=== PATIENT | female | born 1990 | race Caucasian/White ===

== ENCOUNTER → 2020-04-22 08:23 | Outpatient (CLI) | payer BC, SELFPAY ==
--- NOTE | 2020-04-22 08:29 | DI.US.S_ITS ---
PROCEDURE: US OB <= 14 WEEKS FETUS INDICATIONS: INITIAL US, DATING OUTSIDE/PRIOR DATING DATA: Last menstrual period (LMP): 02/21/20. LMP-based estimated date of delivery (DANIELLE): 11/27/20 . First dating scan (date and location): 04/22/20 . Estimated date of delivery (DANIELLE) from first dating scan: 11/25/20 . TECHNIQUE: Real-time scanning was performed of the fetus and maternal pelvic organs, with image documentation. Endovaginal scanning was also performed to better visualize the fetus and maternal ovaries. COMPARISON: None. FINDINGS: Embryo: [place]-rump length of 2.3 cm correlates with a gestational age estimate of 9 weeks 0 days, +/-5 days. A small subchorionic hemorrhage measuring 1.0 x 1.8 x 2.3 cm is present. Measurement variability in dating: +/- 4 weeks by LMP, +/- 7 days by mean sac diameter (use before 6 weeks gestation if crown-rump length not able to be measured), +/- 5 days by crown-rump length (up to 8 weeks 6 days gestation), +/- 7 days by crown-rump length (up to 13 weeks 6 days gestation). Maternal organs: Ovaries normal considering gestational status . Limited images through the kidneys demonstrate no hydronephrosis. REFERENCE THRESHOLD NUMBERS DELETE FROM FINAL REPORT ?-hCG levels and endovaginal scanning: * Should see gestational sac if >6289-4666 IU/L. * Single hCG level, regardless of value cannot distinguish b/w ectopic and IUP. * If hCG level <3000, do not treat for ectopic, to avoid harming possible viable IUP. * If hCG level >3000, most likely non-viable IUP if a sac is not visualized. Get followup hCG AND pelvic US before treating for ectopic . * Any recommended followup: favor short-term US rather than serial hCG levels. Small percentage of ectopics may have hCG changes that mimic IUP or sAb. Gestational age and endovaginal scannin-6-7 rule of thumb * Should see gestational sac by 5 weeks EGA * Should see yolk sac by 6 weeks EGA * Should see embryo by 7 weeks EGA [place] [employer] consensus statement: recommendations for reporting: * Definite ectopic : extra-uterine GS with YS, possibly embryo. * Probably ectopic : extra-uterine sac-like structure or adnexal mass. * of unknown location: no visible IUP or ectopic. o If single hCG level is 3000 or more: viable intrauterine gestation is unlikely but cannot be definitively excluded. o If pt is hemodynamically stable, a single hCG level should not be used to distinguish ectopic from intrauterine , or determining MTX Rx. o hCG and 7-10 day US followup (preferred) until definitive diagnosis. o Most ectopic pregnancies have hCG levels <3000 and often <1000, but is variable and does not predict rupture. * Probable intra-uterine : intra-uterine sac-like structure with no yolk sac or embryo, normal adnexa. * Definite intra-uterine : intra-uterine GS with yolk sac, possible embryo. SRU consensus statement Jun 2012: Findings suspicious but not diagnostic for early failure: * CRL <7 mm and no heart motion. * MGSD 16-24 mm and no embryo seen. * No embryo 7-13 days after US that showed GS without yolk sac. * No embryo 7-10 days after US that showed GS with yolk sac. * Absence of embryo 6 weeks or more after LMP. * Empty amniotic sac adjacent to yolk sac. * Large yolk sac of 7 mm or more. * Small sac size: MGSD minus CRL is < 5 mm. * Sustained bradycardia <80 bpm. Findings diagnostic for early failure: * CRL 7 mm or more and no heart motion. * MGSD 25 mm or more and no embryo seen. * No embryo seen 14 days or more after US showed a GS without yolk sac. * No embryo seen 11 days or more after US showed a GS with yolk sac. Nuchal translucency: abnormal at >3 mm between 10-14 weeks EGA IMPRESSION: Single living intrauterine gestation, small adjacent subchorionic hemorrhage incidentally noted. Delivery date is projected to be centered on 11/25/20. Follow-up anatomic survey at approximately 20 weeks gestation is recommended. Dictated by: Kj Flores M.D. on 04/22/2020 at 9:56 Approved by: Kj Flores M.D. on 04/22/2020 at 9:59
[2020-04-22 09:35] LABS: Add Manual Diff / Slide Review NO; Basophils Absolute Auto 0 /uL (0-100); Basophils Percent Auto 0.4 % (0-2); Eosinophils Absolute Auto 0 /uL (0-450); Eosinophils Percent Auto 0.4 % (2-4); Hematocrit 39.5 % (36-46); Hemoglobin 13.6 g/dL (12.0-16.0); Lymphocytes Absolute Auto 1500 /uL (1100-4500); Lymphocytes Percent Auto 15.1 % (25-40); Mean Corpuscular HGB Conc 34.5 % (30-36); Mean Corpuscular Hemoglobin 29.5 PG (26-34); Mean Corpuscular Volume 85.6 fL (80-100); Monocytes Absolute Auto 600 /uL (0-900); Monocytes Percent Auto 5.5 % (3-14); Neutrophils Absolute Auto 7800 /uL (1500-7000); Neutrophils Percent Auto 78.6 % (50-75); Platelet Count 232 X10^3/uL (150-400); Red Blood Cell Count 4.62 X10^6/uL (4.0-5.2); Red Cell Distribution Width 12.5 % (11.6-14.8)
[2020-04-22 09:37] LABS: Appearance Urine UA CLEAR; Bilirubin Urine UA NEGATIVE (NEGATIVE); Color Urine UA YELLOW; Glucose Urine UA NEGATIVE (Negative); Ketones Urine UA NEGATIVE (NEGATIVE); Leukocyte Esterase Urine UA NEGATIVE (NEGATIVE); Nitrite Urine UA NEGATIVE (Negative); Occult Blood Urine UA NEGATIVE (Negative); Protein Urine UA NEGATIVE (Negative); Specific Gravity Urine UA <=1.005 (1.000-1.035); Urobilinogen Urine UA 0.2 E.U./dL (0.2)
[2020-04-22 12:57] LABS: Hepatitis B Surface Antigen NEGATIVE s/c (NEGATIVE); Rubella Antibody IgG 21.2 IU/mL (>15)
[2020-04-22 13:12] LABS: HIV 1 & 2 Ab/Ag 4th Gen Combo NEGATIVE (NEGATIVE); Hep C Virus Ab w/Reflex Quant NEGATIVE s/c (NEGATIVE)
[2020-04-23 04:12] LABS: RPR Screen Non Reactive (Non Reactive)
[2020-04-23 07:09] LABS: Varicella IgG Antibody 230 index (Immune >165)
== END ==
PROVIDERS: PCP Family Medicine; Referring Provider Family Medicine; Visit Provider Family Medicine
DX: Z34.91 Encounter for supervision of normal pregnancy, unspecified, first trimester (principal); Z3A.09 9 weeks gestation of pregnancy
CPT/HCPCS: 36415; 76801; 76817; 80055; 81003; 86787; 86803; 86850; 86900; 86901; 87086; 87389

== ENCOUNTER → 2020-07-11 15:37 | Outpatient (CLI) | payer BC, SELFPAY ==
--- NOTE | 2020-07-11 15:37 | DI.US.S_ITS ---
PROCEDURE: US OB >= 14 WEEKS FETUS INDICATIONS: anatomy screening OUTSIDE/PRIOR DATING DATA: Last menstrual period (LMP): 02/21/20 . LMP-based estimated date of delivery (DANIELLE): 11/28/19 . First dating scan (date and location): 04/22/20 . Estimated date of delivery (DANIELLE) from first dating scan: 11/25/20 . TECHNIQUE: Real-time scanning was performed of the fetus, with image documentation and biometric measurements. Endovaginal scanning: Not needed COMPARISON: None. FINDINGS: General: A single living intrauterine gestation is present. Presentation: Vertex. Placenta: Placental position is anterior , without previa. Amniotic fluid index: 12.4 cm, normal range is 5-24 cm. heart rate: 153 beats per minute. Maternal cervical canal: 4.8 cm long. Normal lower limit is 2.5 cm. biometrics: Biparietal diameter: 4.4 cm, 19 weeks 3 days Head circumference: 17.4 cm, 19 weeks 6 days Abdominal circumference: 15.7 cm, 20 weeks 6 days Femur length: 3.8 cm, 22 weeks 1 day Estimated gestational age from initial scan: 20 weeks 3 days Composite gestational age from present scan: 20 weeks 4 days Estimated weight and percentile: 407 g, 85th percentile Measurement variability for biometric dating: +/- 7 days from 14 weeks to 15 weeks 6 days gestation, +/- 10 days from 16 weeks to 21 weeks 6 days gestation, +/- 2 weeks from 22 weeks to 27 weeks 6 days gestation, +/- 3 weeks for 28 weeks gestation or later. weight reference: 4500 g or EFW >90/95% is considered macrosomia or large for gestational age. EFW <10% is small for gestational age. EFW 5% or less is considered intra-uterine growth restriction. Anatomic survey: Neuro: Ventricles are non-dilated at less than 10 mm. Cisterna magna is normal at 3-11 mm. Cerebellum is normal in size and morphology. Nuchal skin fold: Normal at less than 6 mm between 14-21 weeks gestational age. Face: Nose and lips, facial profile are normal. Spine: No evidence for spina bifida. Heart: 4-chambered heart is present, with normal ventricular outflow tracts. Diaphragm: Diaphragm is intact. Stomach: Left-sided stomach is present. Kidneys: No hydronephrosis. Normal is less than 5 mm in 2nd trimester, less than 7 mm in 3rd trimester. Cord: 3-vessel cord has orthotopic insertion. Bladder: Normal in size. Extremities: All 4 extremities identified. IMPRESSION: Appropriate interval growth, no anomaly seen. The delivery date is projected to be centered on 11/25/20. Dictated by: Kj Flores M.D. on 07/12/2020 at 10:48 Approved by: Kj Flores M.D. on 07/12/2020 at 11:05
== END ==
PROVIDERS: PCP Family Medicine; Referring Provider Family Medicine; Visit Provider Family Medicine
DX: Z36.89 Encounter for other specified antenatal screening (principal); Z3A.20 20 weeks gestation of pregnancy
CPT/HCPCS: 76811

== ENCOUNTER → 2020-09-12 07:16 | Outpatient (CLI) | payer BC, SELFPAY ==
[2020-09-12 09:25] LABS: Hematocrit 34.4 % (36-46); Hemoglobin 11.8 g/dL (12.0-16.0)
[2020-09-12 10:06] LABS: GTT (PREG) 1 Hour PP 50gm Dose 130 mg/dL (76-139)
== END ==
PROVIDERS: PCP Family Medicine; Referring Provider Family Medicine; Visit Provider Family Medicine
DX: Z34.90 Encounter for supervision of normal pregnancy, unspecified, unspecified trimester (principal); Z3A.26 26 weeks gestation of pregnancy
CPT/HCPCS: 36415; 82950; 85014; 85018

== ENCOUNTER → 2020-10-13 16:05 | Outpatient (CLI) | payer BC, SELFPAY ==
--- NOTE | 2020-10-13 16:06 | DI.US.S_ITS ---
PROCEDURE: US OB LIMITED INDICATIONS: h/o macrosomia, check growth OUTSIDE/PRIOR DATING DATA: Last menstrual period (LMP): 02/21/20. LMP-based estimated date of delivery (DANIELLE): 11/27/20 . First dating scan (date and location): 04/22/20 . Estimated date of delivery (DANIELLE) from first dating scan: 11/25/20 . TECHNIQUE: Real-time scanning was performed of the fetus, with image documentation and biometric measurements. Endovaginal scanning: Not needed COMPARISON: None. FINDINGS: General: A single living intrauterine gestation is present. Presentation: Vertex. Placenta: Placental position is anterior Amniotic fluid index: 14.2 cm, normal range is 5-24 cm. heart rate: 136 beats per minute. Maternal cervical canal: 3.9 cm long. Normal lower limit is 2.5 cm. biometrics: Biparietal diameter: 8.3 cm, 33 weeks 2 days Head circumference: 30.7 cm, 34 weeks 2 days Abdominal circumference: 30.7 cm, 34 weeks 5 days Femur length: 6.8 cm, 35 weeks 1 day Estimated gestational age from initial scan: 33 weeks 6 days. Composite gestational age from present scan: 34 weeks 2 days Estimated weight and percentile: 2476 g, 67th percentile Measurement variability for biometric dating: +/- 7 days from 14 weeks to 15 weeks 6 days gestation, +/- 10 days from 16 weeks to 21 weeks 6 days gestation, +/- 2 weeks from 22 weeks to 27 weeks 6 days gestation, +/- 3 weeks for 28 weeks gestation or later. weight reference: 4500 g or EFW >90/95% is considered macrosomia or large for gestational age. EFW <10% is small for gestational age. EFW 5% or less is considered intra-uterine growth restriction. Other: Not applicable. IMPRESSION: Appropriate interval growth, no sign of macrosomia. Dictated by: Kj Flores M.D. on 10/14/2020 at 9:33 Approved by: Kj Flores M.D. on 10/14/2020 at 9:37
== END ==
PROVIDERS: PCP Family Medicine; Referring Provider Family Medicine; Visit Provider Family Medicine
DX: Z36.2 Encounter for other antenatal screening follow-up (principal); Z3A.34 34 weeks gestation of pregnancy
CPT/HCPCS: 76815

== ENCOUNTER → 2020-11-04 08:50 | Outpatient (CLI) | payer BC, SELFPAY ==
[2020-11-05 13:16] LABS: Strep Grp B PCR POS for Grp B Strep
== END ==
PROVIDERS: PCP Family Medicine; Visit Provider Family Medicine
DX: Z34.93 Encounter for supervision of normal pregnancy, unspecified, third trimester (principal); Z3A.36 36 weeks gestation of pregnancy
CPT/HCPCS: 87186; 87653

== ENCOUNTER 2020-11-24 19:29 | Inpatient (IN) | payer BC, SELFPAY ==
[2020-11-24 19:43] VITALS: BP 115/72
[2020-11-24 20:12] LABS: Add Manual Diff / Slide Review NO; Basophils Absolute Auto 100 /uL (0-100); Basophils Percent Auto 0.6 % (0-2); Eosinophils Absolute Auto 100 /uL (0-450); Eosinophils Percent Auto 0.7 % (2-4); Hematocrit 36.1 % (36-46); Hemoglobin 11.8 g/dL (12.0-16.0); Lymphocytes Absolute Auto 2600 /uL (1100-4500); Lymphocytes Percent Auto 20.5 % (25-40); Mean Corpuscular HGB Conc 32.6 % (30-36); Mean Corpuscular Hemoglobin 27.1 PG (26-34); Monocytes Absolute Auto 900 /uL (0-900); Monocytes Percent Auto 7.3 % (3-14); Neutrophils Absolute Auto 8800 /uL (1500-7000); Neutrophils Percent Auto 70.9 % (50-75); Platelet Count 259 X10^3/uL (150-400); Red Blood Cell Count 4.35 X10^6/uL (4.0-5.2); Red Cell Distribution Width 13.4 % (11.6-14.8); White Blood Cell Count 12.5 X10^3/uL (4.5-11.0)
[2020-11-24] MEDS: DINOPROSTONE VAG (CERVIDIL) 10 MG VAG (20:30)
[2020-11-24] MEDS: CEFAZOLIN 2 GM/100 ML FROZ.PIGGY IV (21:40)
[2020-11-24] MEDS: LACTATED RINGERS 1,000 ML 100 ML IV (21:40)
[2020-11-24 21:49] LABS: COVID19 - ADMIT (NP swab/PCR) Negative (Negative)
[2020-11-24] MEDS: ZOLPIDEM 5 MG TABLET PO (22:56)
[2020-11-25] MEDS: OXYTOCIN PREMIX 30 UNIT/500 ML PLAST..BAG IV (05:03)
[2020-11-25] MEDS: CEFAZOLIN 1 GM/50 ML FROZ.PIGGY IV ×3 (05:28→14:16)
--- NOTE | 2020-11-25 06:46 | PM.OBHP.1 ---
OB HPI Date/Time Date of admission: 11/25/20 Date Patient Seen: 11/25/20 Time Patient Seen: 07:10 History of Present Condition Chief complaint: observation of labor : 4 Para: 1 Estimated Date of Delivery: 11/27/20 Estimated Gestational Age (weeks): 39w5d Narrative: Bethany Galindo is a 30 year old at 30 weeks and 5 days here for induction due to history of forceps delivery with macrosomia. has been uncomplicated. Estimated weight was sixty-seventh percentile 34 weeks. Patient came in last night for Cervidil. Less than 1 hour after placement of Cervidil she began mary painfully every minute so Cervidil was removed. Overnight she continued to contract but mild enough to sleep through. Denies leaking or bleeding and reports good movement. Indications Indication for induction OB: other (Prior forceps delivery and macrosomia) History of Present care: good care, initiated at week # (9), number of visits (11) and pounds weight gain (41) Dating criteria: LMP confirmed by 1st trimester US Ultrasounds: normal 1st trimester US and normal mid trimester US Obstetrical complications: none Medical complications: none Preadmission Labs Blood type: A (+) positive -: Antibody screen: negative, GBS status: positive, HBsAG: negative, HIV: negative and RPR/VDLR: negative -: Rubella: immune and Varicella: immune HCT: 36.1 HCAB: negative Urine: Negative 1 hr GTT: 130 Prior (ies) History: 09/19/16 7 weeks spontaneous , [place] 08/29/17 postdates induction at 41 weeks forcep assisted vaginal delivery, 9 lbs 2 oz male, 18 hr labor, epidural, [place], breast fed 13 months 01/25/20 6 weeks spontaneous , [place] Evaluation Evaluation Baseline heart rate: 130 Variability: Moderate (11-25) monitor accelerations: Present monitor decelerations: Absent Contraction Frequency (minutes): 4 Status: Category l Cervical dilation (cm): 3 Cervical effacement (%): 75 station: -2 Laboratory results: Laboratory Tests 11/24/20 11/24/20 11/24/20 19:55 20:00 20:00 WBC 12.5 H RBC 4.35 Hgb 11.8 L Hct 36.1 MCV 83.0 MCH 27.1 MCHC 32.6 RDW 13.4 Plt Count 259 Neut % (Auto) 70.9 Lymph % (Auto) 20.5 L [place] % (Auto) 7.3 Eos % (Auto) 0.7 L Baso % (Auto) 0.6 Neut # (Auto) 8800 H Lymph # (Auto) 2600 [place] # (Auto) 900 Eos # (Auto) 100 Baso # (Auto) 100 SARS-CoV-2 (PCR) Negative Blood Type A Positive Antibody Screen Negative PFSH Medical History Allergies Astigmatism Chicken pox (~1995) Heavy menstrual period Kidney stones (~2016) Migraines (~2007) (spontaneous vaginal delivery) Surgical History Anesthesia [place] teeth removed (~2007) Family History Mother Gestational diabetes Endometriosis Father Hyperlipidemia Grandfather History of heart disease Colon cancer Hyperlipidemia Hypertension Grandmother Liver cancer Osteoporosis Grandfather Diabetes mellitus History of heart disease Hyperlipidemia Grandmother Colon cancer Breast cancer Macular degeneration Family/Other Diabetes mellitus Family/Other Lymphoma Family/Other Breast cancer Sister Benign tumor of pituitary gland Social History marital status: number of children: 1 household members: family lives independently: Yes pets and animals: Yes (X 2 dogs) education level: college (BA K-12 [employer] and [employer] Cert) occupational status: unemployed ([id number]) current occupational exposures/hazards: No 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 [employer] nicole/amish: [employer] special nicole needs: No Smoking Status: Never smoker second hand exposure: No alcohol intake: former (pre- : rare use) substance use type: does not use Meds Home Medications and Allergies Home Medications Medication Instructions Recorded Confirmed Type prenat.vits,drea,ejp-[id number] 1 tab PO DAILY 04/20/20 11/24/20 History Allergies Allergy/AdvReac Type Severity Reaction Status Date / Time amoxicillin Allergy Severe Hives Verified 04/25/20 14:05 Review of Systems Review of Systems ROS: Yes All systems reviewed with the patient and are negative except as otherwise documented Exam Vital Signs (past 8 hours): Temperature 36.2? blood pressure 114/64 heart rate 94 Const General: healthy appearing and comfortable [facility] Head: normal to inspection Ears: hearing grossly normal bilaterally Nose: external nose normal Face and sinus: normal facial exam Mouth: oral mucosae normal Eyes General: appearance normal, both eyes and all related structures Neck Neck: normal visual inspection Resp Effort & Inspection: normal respiratory effort Auscultation: clear to auscultation bilaterally Cardio Rate: regular rate Rhythm: regular rhythm Heart Sounds: no murmurs GI Other: Gravid External Female Exam: normal external appearance Manual OB Exam: dilated 3, effaced 75% and station -2 Presentation: vertex Estimated Weight (lbs): 8 Back/Spine/Pelvis Back: normal to inspection Skin General: no rashes or lesions noted Extrem General: normal to inspection and no pedal edema Objective Labs Result Diagrams: 11/24/20 20:00 Labs: Laboratory Results - last 24 hr 11/24/20 11/24/20 11/24/20 19:55 20:00 20:00 WBC 12.5 H RBC 4.35 Hgb 11.8 L Hct 36.1 MCV 83.0 MCH 27.1 MCHC 32.6 RDW 13.4 Plt Count 259 Neut % (Auto) 70.9 Lymph % (Auto) 20.5 L [place] % (Auto) 7.3 Eos % (Auto) 0.7 L Baso % (Auto) 0.6 Neut # (Auto) 8800 H Lymph # (Auto) 2600 [place] # (Auto) 900 Eos # (Auto) 100 Baso # (Auto) 100 SARS-CoV-2 (PCR) Negative Blood Type A Positive Antibody Screen Negative Assessment and Plan Assessment and Plan Assessment and Plan narrative: 30-year-old at 39 weeks and 5 days gestation here for induction due to history of forceps delivery and macrosomia. She received Cervidil last night however it was removed after 1 hour due to tachysystole. This morning Kaur score is 7. Plan Pitocin per protocol GBS prophylaxis with cefazolin due to mild penicillin allergy Epidural upon request COVID negative Anticipate vaginal delivery
[2020-11-25] MEDS: ACETAMINOPHEN 325 MG TABLET 650 MG PO (09:17)
[2020-11-25] MEDS: LACTATED RINGERS 1,000 ML 100 ML IV ×2 (10:03→14:14)
--- NOTE | 2020-11-25 12:38 | PM.OBPNLAB ---
Date/Time Date Patient Seen: 11/25/20 Time Patient Seen: 12:25 Pain Control Pain control: tolerating well Pelvic Exam Dilation (cm): 3 Effacement (%): 75 station: -2 Amniotic membrane status: Ruptured (Small amount of clear fluid) Contractions Pitocin rate (mU/min): 18 Contraction frequency (min): 4 Contraction intensity: Moderate Status status: Category l Heart Rate Baseline: 150 Monitor Accelerations: Present Monitor Decelerations: Absent Monitor Variability: Moderate Assessment and Plan Assessment: induction ongoing Plan: continuous present management Comments: Patient has been on pitocin since 5 AM with little change. AROM with small amount of clear fluid. Continue pitocin. Epidural when desired.
--- NOTE | 2020-11-25 16:55 | PM.OBPNLAB ---
Date/Time Date Patient Seen: 11/25/20 Time Patient Seen: 16:45 Pain Control Pain control: tolerating well and epidural Comments: Doing well after second epidural. States she cannot feel anything. Pelvic Exam Dilation (cm): 7 Effacement (%): 100 station: -2 Amniotic membrane status: Ruptured (clear) Contractions Pitocin rate (mU/min): 15 Contraction frequency (min): 3 Contraction intensity: Moderate Status status: Category l Heart Rate Baseline: 130 Monitor Accelerations: Present Monitor Decelerations: Early Monitor Variability: Moderate Assessment and Plan Assessment: active labor Plan: continuous present management
--- NOTE | 2020-11-25 19:03 | P.PCNOB_ITS ---
Labor & Delivery Delivery date: 11/25/20 Cervical ripening method: per Cervidil protocol Induction method: per pitocin protocol Delivery augmentation: rupture of membranes Delivery monitor: external FHT Route of delivery: L&D Laceration Description: Perineal - 2nd Degree Delivery repair: vicryl Estimated blood loss (mL): 400 Anesthesia Type: Epidural Narrative: Patient is a 30-year-old at 39+5 weeks who gave on 11/25/20 at 18:30. DANIELLE: 11/27/20 Hospital problems: 39 weeks of GBS positive Epidural analgesia STAGE I: Labor Patient presented the night of 11/24/20 for Cervidil. Cervidil was removed after 1 hour due to uterine tachysystole however patient continued to contract overnight. The morning of 11/25/20 she received Pitocin per protocol. Artificial rupture membranes occurred at 12:37 p.m. with clear fluid. She went on to receive an epidural which had to be done a second time. She was complete at 5:41 p.m.. heart tones were category 1 and 2 throughout stage I due to occasional variable decelerations. Stage I duration 20 hours. STAGE II: Delivery Patient was complete however labored down for approximately 30 minutes due to lack of the urge to push. She went on to deliver a vigorous female at 18 30. Infant was vertex and ML. Infant was immediately placed on mother's abdomen. Cord was clamped and cut after 1 minutes delay. Apgars were 9 and 9. No resuscitation of the required. Stage II duration 49 minutes. [place] weight 3983 g STAGE III: Placenta/Cord Gentle traction was applied to the cord however cord was beginning to avulse. The decision was main to manually extract the placenta which had begun to separate from the uterus and was partially in the vagina. Placenta delivered intact with a three-vessel cord. The umbilical cord was barely attached to the placenta on inspection. Stage III duration 10 minutes. Will give an additional dose of cefazolin due to manual extraction of placenta. A linear second-degree perineal laceration through her previous episiotomy scar was repaired with 4-0 Vicryl with good hemostasis. Uterus was firm below umbilicus after repair. EBL: 400 mL. Needle and sponge counts were correct. The vagina was inspected and no items were left in situ. Patient was doing well with [place], her and at bedside. Baby 1: gender: Female Presentation: vertex Position: Left Occiput Anterior Placenta delivery description: Manual Removal Cord Vessel Description: 3 Vessels Plan for aftercare: Routine care
[2020-11-26] MEDS: DERMOPLAST SPRAY 20% 60 ML 1 SPRAY TOP (01:06)
[2020-11-26] MEDS: IBUPROFEN 600 MG TABLET PO ×3 (03:38→15:37)
[2020-11-26] MEDS: ACETAMINOPHEN 325 MG TABLET 650 MG PO ×3 (03:38→15:37)
[2020-11-26 05:50] LABS: Add Manual Diff / Slide Review NO; Basophils Absolute Auto 100 /uL (0-100); Basophils Percent Auto 0.7 % (0-2); Eosinophils Absolute Auto 0 /uL (0-450); Eosinophils Percent Auto 0.1 % (2-4); Hematocrit 33.7 % (36-46); Hemoglobin 11.1 g/dL (12.0-16.0); Lymphocytes Absolute Auto 2500 /uL (1100-4500); Lymphocytes Percent Auto 13.9 % (25-40); Mean Corpuscular HGB Conc 32.9 % (30-36); Mean Corpuscular Hemoglobin 27.3 PG (26-34); Mean Corpuscular Volume 83.1 fL (80-100); Monocytes Absolute Auto 1000 /uL (0-900); Monocytes Percent Auto 5.6 % (3-14); Neutrophils Absolute Auto 14400 /uL (1500-7000); Neutrophils Percent Auto 79.7 % (50-75); Platelet Count 244 X10^3/uL (150-400); Red Blood Cell Count 4.05 X10^6/uL (4.0-5.2); Red Cell Distribution Width 13.5 % (11.6-14.8)
--- NOTE | 2020-11-26 09:30 | PM.OBDS.1 ---
Discharge Providers Provider Date of admission: 11/24/20 19:29 Discharge Date: 11/26/20 Primary care physician: Nubia Arroyo DO Consults: 11/26/20 19:04 Consult to [employer] Routine Comment: Discharge provider: Nubia Arroyo DO Summary Hospital Course Date Patient Seen: 11/26/20 Time Patient Seen: 09:00 Hospital Course: Patient is a 30-year-old [id number] after uncomplicated spontaneous vaginal delivery. She delivered a vigorous female on 11/25/20 at 6:30 p.m. She was induced due to history of forceps delivery and macrosomia. She received Cervidil for cervical ripening followed by Pitocin and artificial rupture membranes. She went on to receive an epidural which had to be redone. Cefazolin was given for GBS prophylaxis due to penicillin allergy and she received 3 doses prior to delivery. After delivery of infant, the cord was starting to avulse from the placenta so the placenta was manually extracted. She received an additional dose of cefazolin after delivery. course was uncomplicated. She was ambulating, voiding, eating and passing flatus. Vaginal bleeding was moderate. Pain controlled with ibuprofen and Tylenol. Breast-feeding going well, no issues in the . Patient will discharge home later this evening. Advised her to call for fevers, severe pain or bleeding through more than a pad an hour. We will see her in clinic in 6 weeks or sooner if needed. Peripartum Data Delivery Method: Natural Vaginal Laceration Description: Perineal - 2nd Degree complications: none 1: Gender: Female Disposition of : home Discharge Diagnosis (1) Spontaneous vaginal delivery: Status: Acute (2) 39 weeks gestation of : Status: Acute Time Spent with Patient Time attestation: Total time spent providing and/or coordinating discharge services: Objective Labs Result Diagrams: 11/26/20 05:37 Labs: Laboratory Results - last 24 hr 11/26/20 05:37 WBC 18.0 H RBC 4.05 Hgb 11.1 L Hct 33.7 L MCV 83.1 MCH 27.3 MCHC 32.9 RDW 13.5 Plt Count 244 Neut % (Auto) 79.7 H Lymph % (Auto) 13.9 L [place] % (Auto) 5.6 Eos % (Auto) 0.1 L Baso % (Auto) 0.7 Neut # (Auto) 15183 H Lymph # (Auto) 2500 [place] # (Auto) 1000 H Eos # (Auto) 0 Baso # (Auto) 100 Exam Vital Signs (past 8 hours): Temperature 98.4? blood pressure 115/74 heart rate 68 respirations 16 Narrative Exam Narrative: General: Awake and alert, no acute distress. HEENT: NCAT, EOMI, moist oral mucosa CV: Regular rate and rhythm, no murmurs, rubs or gallops Lungs: CTAB, no wheezes, rales, or rhonchi Abdomen: Soft, nontender; bowel tones active; uterus firm 1 cm below umbilicus Extremities: Warm, no edema Discharge Plan Discharge Plan Patient Disposition: Home Provider Discharge Comment: Call for bleeding through more than a pad an hour, fevers or severe pain. Discharge orders & Medications Prescriptions: New docusate sodium [DOK] 100 mg Capsule 100 mg PO DAILY Qty: 30 RF: 0 ibuprofen 600 mg Tablet 600 mg PO Q6HR PRN (Reason: Pain, Mild (1-3)) Qty: 30 RF: 0 Continued prenat.vits,drea,[id number] Tablet 1 tab PO DAILY RF: 0 Follow up/Referrals: Nubia Arroyo DO [Primary Care Provider] - 6 Weeks Visit Report/Discharge Packet Visit Report Forms: Patient Portal/API, Stroke Signs & Symptoms Discharge Data Primary Care Provider: Nubia Arroyo
[2020-11-26] MEDS: PRENATAL VIT,CALC/IRON/FOLIC 1 TABLET 1 TAB PO (09:35)
[2020-11-26] MEDS: DOCUSATE 100 MG CAPSULE PO (09:35)
[2020-11-26 15:23] VITALS: BP 116/79; PULSE 78; RESP 16; TEMP 36.7
== END 2020-11-26 18:00 | disposition home or self-care (01) | DRG 807 ==
PROVIDERS: Admitting Provider Family Medicine; PCP Family Medicine; Referring Provider Family Medicine; Visit Provider Family Medicine
DX: O99.824 Streptococcus B carrier state complicating childbirth (principal); Z37.0 Single live birth; Z3A.39 39 weeks gestation of pregnancy; O70.1 Second degree perineal laceration during delivery; Z20.822 Contact with and (suspected) exposure to COVID-19
CPT/HCPCS: 01967; 36415; 59050; 59400; 85025; 86850; 86900; 86901; 87635; G0379; J0690; J2590

== ENCOUNTER → 2021-01-06 10:16 | Outpatient (CLI) | payer BC, SELFPAY ==
[2021-01-06] MEDS: COVID-19 VACC #1, MRNA(MOD) 100 MCG/0.5 ML VIAL IM (10:30)
== END ==
PROVIDERS: PCP Family Medicine; Visit Provider Internal Medicine
DX: Z23 Encounter for immunization (principal)
CPT/HCPCS: 0011A; 91301

== ENCOUNTER → 2021-02-01 10:13 | Outpatient (CLI) | payer BC, SELFPAY ==
[2021-02-01] MEDS: COVID-19 VACC #2, MRNA(MOD) 100 MCG/0.5 ML VIAL IM (10:19)
== END ==
PROVIDERS: PCP Family Medicine; Visit Provider Internal Medicine
DX: Z23 Encounter for immunization (principal)
CPT/HCPCS: 0012A; 91301

== ENCOUNTER → 2023-08-09 15:21 | Outpatient (CLI) | payer BC, SELFPAY ==
[2023-08-09 16:06] LABS: Add Manual Diff / Slide Review NO; Basophils Absolute Auto 0 /uL (0-100); Basophils Percent Auto 0.4 % (0-2); Eosinophils Absolute Auto 100 /uL (0-450); Eosinophils Percent Auto 0.5 % (2-4); Hematocrit 37.8 % (36-46); Hemoglobin 12.8 g/dL (12.0-16.0); Lymphocytes Absolute Auto 2100 /uL (1100-4500); Lymphocytes Percent Auto 21.6 % (25-40); Mean Corpuscular HGB Conc 33.8 % (30-36); Mean Corpuscular Hemoglobin 28.5 PG (26-34); Mean Corpuscular Volume 84.3 fL (80-100); Monocytes Absolute Auto 500 /uL (0-900); Monocytes Percent Auto 5.2 % (3-14); Neutrophils Absolute Auto 7100 /uL (1500-7000); Neutrophils Percent Auto 72.3 % (50-75); Platelet Count 241 X10^3/uL (150-400); Red Blood Cell Count 4.49 X10^6/uL (4.0-5.2); Red Cell Distribution Width 12.8 % (11.6-14.8); White Blood Cell Count 9.8 X10^3/uL (4.5-11.0)
[2023-08-09 16:15] LABS: Appearance Urine UA CLEAR; Bilirubin Urine UA NEGATIVE (NEGATIVE); Color Urine UA YELLOW; Glucose Urine UA NEGATIVE (Negative); Ketones Urine UA NEGATIVE (NEGATIVE); Leukocyte Esterase Urine UA NEGATIVE (NEGATIVE); Nitrite Urine UA NEGATIVE (Negative); Occult Blood Urine UA NEGATIVE (Negative); Protein Urine UA NEGATIVE (Negative); Specific Gravity Urine UA 1.025 (1.000-1.035); Urobilinogen Urine UA 0.2 E.U./dL (0.2)
[2023-08-09 16:26] LABS: pH Urine UA 6.5 (4.5-8.0)
[2023-08-10 11:03] LABS: Varicella IgG Antibody 244 index (Immune >165)
[2023-08-12 16:28] LABS: Hepatitis B Surface Antigen NEGATIVE s/c (NEGATIVE)
[2023-08-12 16:29] LABS: Rubella Antibody IgG 17.4 IU/mL (>15)
[2023-08-12 16:45] LABS: HIV 1 & 2 Ab/Ag 4th Gen Combo NEGATIVE (NEGATIVE); Hep C Virus Ab w/Reflex Quant NEGATIVE s/c (NEGATIVE)
[2023-08-13 09:27] LABS: RPR Screen Non Reactive (Non Reactive)
== END ==
PROVIDERS: PCP Family Medicine; Referring Provider Family Medicine; Visit Provider Family Medicine
DX: Z34.80 Encounter for supervision of other normal pregnancy, unspecified trimester (principal)
CPT/HCPCS: 80055; 81003; 86787; 86803; 86850; 86900; 86901; 87086; 87389

== ENCOUNTER → 2023-09-05 10:52 | Outpatient (CLI) | payer BC, SELFPAY ==
[2023-09-05 12:07] LABS: Appearance Urine UA CLEAR; Bilirubin Urine UA NEGATIVE (NEGATIVE); Color Urine UA YELLOW; Glucose Urine UA NEGATIVE (Negative); Ketones Urine UA NEGATIVE (NEGATIVE); Leukocyte Esterase Urine UA NEGATIVE (NEGATIVE); Nitrite Urine UA NEGATIVE (Negative); Occult Blood Urine UA NEGATIVE (Negative); Protein Urine UA NEGATIVE (Negative); Specific Gravity Urine UA 1.025 (1.000-1.035); Urobilinogen Urine UA 0.2 E.U./dL (0.2)
[2023-09-05 12:23] LABS: Amorphous Sediment Urine 1+; Bacteria Urine None Seen; Culture Indicated Urine Cult Not Indicated; Hyaline Casts Urine 0-1/LPF; RBC Urine None Seen (0-5/HPF); Squamous Epithelial Cell Urine 1-5 /HPF (0-5/HPF); WBC Urine None Seen (0-5/HPF)
== END ==
PROVIDERS: PCP Family Medicine; Referring Provider Family Medicine; Visit Provider Family Medicine
DX: R30.0 Dysuria (principal)
CPT/HCPCS: 81001

== ENCOUNTER → 2023-10-11 14:13 | Outpatient (CLI) | payer BC, SELFPAY ==
--- NOTE | 2023-10-11 14:14 | DI.US.S_ITS ---
PROCEDURE: US OB >= 14 WEEKS FETUS INDICATIONS: growth OUTSIDE/PRIOR DATING DATA: Last menstrual period (LMP): Unknown. LMP-based estimated date of delivery (DANIELLE): Unknown. First dating scan (date and location): 07/31/2023. Estimated date of delivery (DANIELLE) from first dating scan: 03/02/2024. The calculations are made using the ultrasound DANIELLE of 03/02/2024. TECHNIQUE: Real-time scanning was performed of the fetus, with image documentation and biometric measurements. Endovaginal scanning: Not performed COMPARISON: None available. FINDINGS: General: A single living intrauterine gestation is present. Presentation: Vertex. Placenta: Placental position is posterior, without previa. Amniotic fluid index: 10.6 cm, normal range is 5-24 cm. Single deepest vertical pocket is 3.6 cm. heart rate: 144 beats per minute. Maternal cervical canal: 47 cm long. Normal lower limit is 2.5 cm. biometrics: Biparietal diameter: 4.4 cm, 19 weeks 3 days Head circumference: 17.3 cm, 19 weeks 6 days Abdominal circumference: 15.5 cm, 20 weeks 5 days Femur length: 3.4 cm, 20 weeks 3 days Clinically estimated gestational age: 19 weeks 4 days Composite gestational age from present scan: 20 weeks 1 day Estimated weight and percentile: 356 g, 91st percentile Anatomic survey: Neuro: Ventricles are non-dilated at less than 10 mm. Cisterna magna is normal at 3-11 mm. Cerebellum is normal in size and morphology. Nuchal skin fold: Normal at less than 6 mm between 14-21 weeks gestational age. Face: Nose and lips, facial profile are normal. Spine: No evidence for spina bifida. Heart: 4-chambered heart is present, with normal ventricular outflow tracts. Diaphragm: Diaphragm is intact. Stomach: Left-sided stomach is present. Kidneys: No hydronephrosis. Normal is less than 5 mm in 2nd trimester, less than 7 mm in 3rd trimester. Cord: 3-vessel cord has orthotopic insertion. Bladder: Normal in size. Extremities: All 4 extremities identified. IMPRESSION: 1. Mishra living intrauterine at 20 weeks 1 day based on today's ultrasound. Fetus is in the 91st percentile for weight. 2. Normal placenta and amniotic fluid. 3. Normal and complete anatomic survey. We strive to produce accurate, complete, and clear reports of imaging services. To assist us in improving patient care, this report was composed using standard report templates and voice recognition software. Therefore, it may contain abnormal punctuation, insertions and/or omissions. Occasional wrong-word or sound-alike substitutions may occur. Though we review the report and make efforts to correct it, we do recommend that the report be read carefully in proper context to recognize any text inaccuracies. Dictated by: Chaka Chicas M.D. on 10/11/2023 at 17:47 Approved by: Chaka Chicas M.D. on 10/11/2023 at 17:52
== END ==
LOC: US 14:14
PROVIDERS: Family Provider Family Medicine; PCP Family Medicine; Referring Provider Family Medicine; Visit Provider Family Medicine
DX: Z34.82 Encounter for supervision of other normal pregnancy, second trimester (principal); Z3A.20 20 weeks gestation of pregnancy
CPT/HCPCS: 76811

== ENCOUNTER → 2023-10-22 11:56 | Outpatient (CLI) | payer BC, SELFPAY | PROVIDERS: Family Provider Family Medicine; PCP Family Medicine; Visit Provider Family Medicine | DX: R39.15 Urgency of urination (principal) | CPT/HCPCS: 87086 ==

== ENCOUNTER → 2023-10-24 12:38 | Outpatient (CLI) | payer BC, SELFPAY ==
--- NOTE | 2023-10-24 12:39 | DI.US.S_ITS ---
PROCEDURE: US RENAL COMPLETE INDICATIONS: HEMATURIA TECHNIQUE: Real-time scanning was performed of the kidneys and bladder, with image documentation. COMPARISON: None. FINDINGS: Kidneys: Kidneys are normal in size. Right kidney measures 11.4 cm long; left kidney measures 12.0 cm long. Right renal cortical thickness is 1.8 cm; left renal cortical thickness is 2.3 cm. Renal cortical echotexture is normal. Right kidney has a generalized increased vascularity and [id number] hydronephrosis. Inferior pole the right kidney is not well visualized due to overlying bowel gas. No shadowing calculi. Left kidney unremarkable. Bladder: Moderate amount of debris. No postvoid residual. Miscellaneous: Single live intrauterine . heart rate 157 beats per minute IMPRESSION: [id number] right hydronephrosis. Moderate echogenic debris in the bladder Approved by: Tomas Encarnacion M.D. on 10/24/2023 at 16:41
== END ==
PROVIDERS: Family Provider Family Medicine; PCP Family Medicine; Referring Provider Family Medicine; Visit Provider Family Medicine
DX: O99.891 Other specified diseases and conditions complicating pregnancy (principal); N13.30 Unspecified hydronephrosis; R31.9 Hematuria, unspecified; Z3A.00 Weeks of gestation of pregnancy not specified
CPT/HCPCS: 76770

== ENCOUNTER → 2023-12-09 09:04 | Outpatient (CLI) | payer BC, SELFPAY ==
[2023-12-09 10:41] LABS: Add Manual Diff / Slide Review NO; Basophils Absolute Auto 0 /uL (0-100); Basophils Percent Auto 0.2 % (0-2); Eosinophils Absolute Auto 0 /uL (0-450); Eosinophils Percent Auto 0.3 % (2-4); Hematocrit 35.8 % (36-46); Hemoglobin 11.8 g/dL (12.0-16.0); Lymphocytes Absolute Auto 1800 /uL (1100-4500); Lymphocytes Percent Auto 15.5 % (25-40); Mean Corpuscular Hemoglobin 27.7 PG (26-34); Mean Corpuscular Volume 84.1 fL (80-100); Monocytes Absolute Auto 500 /uL (0-900); Neutrophils Absolute Auto 9100 /uL (1500-7000); Platelet Count 254 X10^3/uL (150-400); Red Blood Cell Count 4.26 X10^6/uL (4.0-5.2); Red Cell Distribution Width 13.4 % (11.6-14.8); White Blood Cell Count 11.4 X10^3/uL (4.5-11.0)
[2023-12-09 10:53] LABS: GTT (PREG) 1 Hour PP 50gm Dose 123 mg/dL (76-139)
== END ==
PROVIDERS: Family Provider Family Medicine; PCP Family Medicine; Referring Provider Family Medicine; Visit Provider Family Medicine
DX: Z34.80 Encounter for supervision of other normal pregnancy, unspecified trimester (principal)
CPT/HCPCS: 36415; 82950; 85025; 86850

== ENCOUNTER 2023-12-20 07:30 | Outpatient (RCR) | payer BC, SELFPAY ==
--- NOTE | 2023-10-25 18:32 | PT.OIE ---
Current Diagnoses Other specified disorders of muscle (10/25/23) Past Medical History (Last Reviewed 07/31/23 @ 12:06 by Carolina Moreno MD) Allergies Chicken pox (~1995) Heavy menstrual period Kidney stones (~2016) Migraines (~2007) Spontaneous vaginal delivery Past Surgical History (Last Reviewed 07/31/23 @ 12:06 by Carolina Moreno MD) Anesthesia [place] teeth removed (~2007) Visit Care Team Role Provider Type Carolina Moreno MD Attending Provider Physician Family Provider Primary Care Provider Referring Provider Specialty: Family Practice Address: [address] [place] [address], [facility] Email: [email or web address] Physical Therapy Initial Evaluation PT-OP-A Visit Information Start: 10/24/23 16:03 Freq: Status: Active Protocol: Document 10/25/23 07:30 LRN (Rec: 10/25/23 08:16 LRN [id number]) Out-Patient Physical Therapy Visit Information Visit Information Visit Type Initial Evaluation Visit Start Time 07:30 Visit Stop Time 08:14 Visit Number 1 Evaluation Information Evaluation Date 10/25/23 Precautions Precautions G5, P2. PT-OP-B Current Condition Start: 10/24/23 16:03 Freq: Status: Active Protocol: Document 10/25/23 07:30 LRN (Rec: 10/25/23 08:16 LRN [id number]) Current Condition History of Current Condition Onset Date 11/25/20 Current Complaints Urinary leakage with sneezing and sometimes feels weak in core. History of Current Condition Pt is 22 wks (due date 03/02/24). Pt experienced urinary leakage with sneezing after the of her first child 6 yrs ago. After her 2nd child in 11/25/2020 she wanted to come to therapy for a DR, but after deciding to come to therapy, the next day she found out she was (a month ago). She is currently being referred to therapy for urinary leakage, with mostly sneezing. She works out fairly regularly and has had a stomach pooch after her first child's . Pt is currently independent with ADLs and has no complaints of back pain at this time. Prior Treatments and Tests None Developmental History Developmental History Pt is G5, P2 of vaginal births . She had epiziotomy with first , mild tearing with epiziotomy with 2nd . Her children are 6 and 2 years old, turning 3 in 3 days. She had UBP during and LBP for a couple months post- after the last , that resolved on its own. Treatment Goals Patient/Caregiver Goals Pt goals: Resolve urinary leakage or learn how to limit urinary leakage, core strengthening to mitigate her diastasis post-. HEP. 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 Pt exercises regularly. PT-OP-C Subjective Start: 10/24/23 16:03 Freq: Status: Active Protocol: Document 10/25/23 07:30 LRN (Rec: 10/25/23 08:16 LRN [id number]) Patient Questionnaires Pelvic Pain and Urgency/Frequency Patient Symptom Scale Pelvic Pain Score 6 PT-OP-I Pelvic Floor Start: 10/24/23 16:03 Freq: Status: Active Protocol: Document 10/25/23 07:30 LRN (Rec: 10/25/23 08:16 LRN [id number]) Pelvic Floor Assessment Urine Urinary Symptoms Dribbling After Urination Leakage Cause Sneeze Other Leakage Causes If bladder is full and sneezes . Note: if crosses legs no leakage. Prolapse Prolapse Comments No complaints Perineal Descent Resting Absent Bearing Present Comments Pelvic Floor Comments Bulge of PF with cough, no lift of PF with contraction in supine. External PF appears tight on L side. PT-OP-J Posture/Palpation/Skin Start: 10/24/23 16:03 Freq: Status: Active Protocol: Document 10/25/23 07:30 LRN (Rec: 10/25/23 08:16 LRN [id number]) Posture Evaluation Position Standing L-Spine Posture Increased Lordosis Pelvis Posture Anteriorly Tilted Weight Distribution Balanced Knee Posture (L) Genu Valgus,(R) Genu Valgus Foot Arch (L) High Arch,(R) High Arch Comments Posture Comments Dowagers Hump, flattened upper T/S. PT-OP-K Range of Motion Start: 10/24/23 16:03 Freq: Status: Active Protocol: Document 10/25/23 07:30 LRN (Rec: 02/16/24 08:16 LRN [id number]) Lumbar Spine Range of Motion Lumbar Spine Active Degrees Testing Position Standing Flexion 75 Rotation Left 25 Rotation Right 25 Lateral Flexion Left 22 Lateral Flexion Right 25 Comments Trunk AROM: Flexion is deg?s with deg?s hip flexion, Trunk extension is deg?s with deg?s hip extension. Hip Goniometric Range of Motion Hip Right Passive Testing Position Supine Straight Leg Raise 70 Internal Rotation 40 External Rotation 65 Left Passive Testing Position Supine Straight Leg Raise 60 Internal Rotation 40 External Rotation 70 PT-OP-M Strength Start: 10/24/23 16:03 Freq: Status: Active Protocol: Document 10/25/23 07:30 LRN (Rec: 10/25/23 08:16 LRN [id number]) Trunk Strength Trunk Manual Muscle Testing Core Stabilization Decreased rotational stability . Hip Strength Hip Manual Muscle Testing Right Extension (S1) 3 Fair Adduction 3 Fair Left Extension (S1) 3 Fair Adduction 3 Fair PT-OP-Q Treatments Start: 10/24/23 16:03 Freq: Status: Active Protocol: Document 10/25/23 07:30 LRN (Rec: 10/25/23 08:16 LRN [id number]) Self-Care/Home Management Treatment Education Patient Education Home Exercise Program Other Education Discussed results of evaluation, goals, and plan of care (POC). Pt agreeable to goals and POC. Activities Self-Care/Home Management Activities Issued & reviewed HEP: Magalis ex's and discussed exercise of Quick Flicks, Long Holds and Aggravators. PT-OP-T Assessment and Plan Start: 10/24/23 16:03 Freq: Status: Active Protocol: Document 10/25/23 07:30 LRN (Rec: 10/25/23 08:16 LRN [id number]) Physical Therapy Assessment Rehab Potential Rehabilitation Potential Good Evaluation Complexity Number of Personal Factors/Comorbidities 1-2 Impairments Impairments Posture,ROM,Strength,Transfers Goals Three Impairment Decreased core stability (at this time mainly rotation) Short Term Goal (STG) Pt will be able to perform a TA contraction with drawing in her abdomen to improve core stability and mitigate onset of post- diastasis rectus. STG Duration 4 wks-11/22/23 Soakers Supervisor Goal (LTG) Strengthen core with pt able to maintain core stability with LE movement (MMT). LTG Duration 10 wks-01/03/24 Two Impairment Stress urinary incontinence due to weak PF Short Term Goal (STG) Pt stephanie be educated in proper squatting and lifting, transfers of stand<>sit<> supine, and moving in bed using breathwork/core tightening/PF contraction strengthening. STG Duration 4 wks-11/22/23 Soakers Supervisor Goal (LTG) Resolve or decrease urinary leakage with a strong sneeze w /o having to cross her legs, and learn how to limit urinary leakage with progression of . LTG Duration 10 wks-01/03/24 One Impairment Pt lacks appropriate self care HEP. Short Term Goal (STG) Education in proper methods for transfer with coordination of breathing, PF contractions . STG Duration 4 wks-11/22/23 Soakers Supervisor Goal (LTG) Pt will be independent with a self care HEP of PF/core strengthening and hip ROM ( hamstring, IR) exercises. LTG Duration 10 wks-01/03/24 Assessment Summary Assessment Pt is a 33 yo female who presents with stress urinary incontinence due to PF, hip and core weakness. Pt is 22 weeks with her 3rd child and had reported having a diastasis rectus prior to that she was planning on attending therapy for, but then fouhd she was ; therefore progress may be slow not only due to her progressing , but due to the level of weakness of her core and PF that she had prior to becoming . The pt will benefit from skilled physical therapy to improve PF and core strength, and to improve posture, hip mobility and strength to achieve the above stated goals . Physical Therapy Plan Frequency and Duration Frequency of Treatment 1x/Week Duration of treatment (weeks) 10 Plan of Care Start Date 10/25/23 Plan of Care End Date 01/03/24 Therapeutic Interventions Therapeutic Interventions Home Exercise Program,Manual Therapy,Neuromuscular Re- education,Self-Care/Home Management,Soft Tissue Mobilization,Therapeutic Activities,Therapeutic Exercises Modalities Cold Pack/Ice Massage Next Visit Focus/Plan Next Note Type Treatment Note Next Visit Plan Next: Discuss/educate in ex workouts that will be safe an appropriate for the future. Assess hip AB mobility. EXER: Hip stretch (IR>ER, hamstrings), core (rotation, TA) & hip (ext, AD) strengthening, pelvic stab. EDUC: best practice transfers with coordination of breathing /TA/PF contraction, mvmt and exercise with core pressure mgmt, body mechanics and exercise, modality use (ICE). MANUAL: Sacral balancing if needed.
--- NOTE | 2023-10-25 18:32 | PT.OPPOC ---
Physical, Occupational & Speech Therapy At [facility] Current Diagnoses Other specified disorders of muscle (10/25/23) Visit Care Team Role Provider Type Carolina Moreno MD Attending Provider Physician Family Provider Primary Care Provider Referring Provider Specialty: Family Practice Address: [address] [place] [address], [id number] Email: [email or web address] Plan Of Care PT-OP-T Assessment and Plan Start: 10/24/23 16:03 Freq: Status: Active Protocol: Document 10/25/23 07:30 LRN (Rec: 10/25/23 08:16 LRN [id number]) Physical Therapy Assessment Rehab Potential Rehabilitation Potential Good Evaluation Complexity Number of Personal Factors/Comorbidities 1-2 Impairments Impairments Posture,ROM,Strength,Transfers Goals Three Impairment Decreased core stability (at this time mainly rotation) Short Term Goal (STG) Pt will be able to perform a TA contraction with drawing in her abdomen to improve core stability and mitigate onset of post- diastasis rectus. STG Duration 4 wks-11/22/23 Wood Floor Layer Goal (LTG) Strengthen core with pt able to maintain core stability with LE movement (MMT). LTG Duration 10 wks-01/03/24 Two Impairment Stress urinary incontinence due to weak PF Short Term Goal (STG) Pt stephanie be educated in proper squatting and lifting, transfers of stand<>sit<> supine, and moving in bed using breathwork/core tightening/PF contraction strengthening. STG Duration 4 wks-11/22/23 Wood Floor Layer Goal (LTG) Resolve or decrease urinary leakage with a strong sneeze w /o having to cross her legs, and learn how to limit urinary leakage with progression of . LTG Duration 10 wks-01/03/24 One Impairment Pt lacks appropriate self care HEP. Short Term Goal (STG) Education in proper methods for transfer with coordination of breathing, PF contractions . STG Duration 4 wks-11/22/23 Wood Floor Layer Goal (LTG) Pt will be independent with a self care HEP of PF/core strengthening and hip ROM ( hamstring, IR) exercises. LTG Duration 10 wks-01/03/24 Assessment Summary Assessment Pt is a 33 yo female who presents with stress urinary incontinence due to PF, hip and core weakness. Pt is 22 weeks with her 3rd child and had reported having a diastasis rectus prior to that she was planning on attending therapy for, but then fouhd she was ; therefore progress may be slow not only due to her progressing , but due to the level of weakness of her core and PF that she had prior to becoming . The pt will benefit from skilled physical therapy to improve PF and core strength, and to improve posture, hip mobility and strength to achieve the above stated goals . Physical Therapy Plan Frequency and Duration Frequency of Treatment 1x/Week Duration of treatment (weeks) 10 Plan of Care Start Date 10/25/23 Plan of Care End Date 01/03/24 Therapeutic Interventions Therapeutic Interventions Home Exercise Program,Manual Therapy,Neuromuscular Re- education,Self-Care/Home Management,Soft Tissue Mobilization,Therapeutic Activities,Therapeutic Exercises Modalities Cold Pack/Ice Massage Next Visit Focus/Plan Next Note Type Treatment Note Next Visit Plan Next: Discuss/educate in ex workouts that will be safe an appropriate for the future. Assess hip AB mobility. EXER: Hip stretch (IR>ER, hamstrings), core (rotation, TA) & hip (ext, AD) strengthening, pelvic stab. EDUC: best practice transfers with coordination of breathing /TA/PF contraction, mvmt and exercise with core pressure mgmt, body mechanics and exercise, modality use (ICE). MANUAL: Sacral balancing if needed. Plan of Care Dates Plan of Care Start Date 10/25/23 Plan of Care End Date 01/03/24 Electronically Signed by: Amanda Mae, PT 10/25/23 0123 If you are in agreement with this Plan of Care, please return a signed and dated copy. I have reviewed this Plan of Care and certify that the skilled therapy services above are required to meet the patient?s needs. Physician Signature Date Printed Name and Credentials Clinical Instructor Signature Printed Name and Credentials
--- NOTE | 2023-11-08 16:00 | PT.OTN ---
Current Diagnoses Other specified disorders of muscle (11/08/23) Physical Therapy Treatment Note PT-OP-A Visit Information Start: 10/24/23 16:03 Freq: Status: Active Protocol: Document 11/08/23 07:25 LRN (Rec: 11/08/23 08:19 LRN [id number]) Out-Patient Physical Therapy Visit Information Visit Information Visit Type Treatment Note Visit Start Time 07:30 Visit Stop Time 08:16 Visit Number 2 Evaluation Information Evaluation Date 10/25/23 Precautions Precautions G5, P2. PT-OP-B Current Condition Start: 10/24/23 16:03 Freq: Status: Active Protocol: Document 10/25/23 07:30 LRN (Rec: 10/25/23 08:16 LRN [id number]) Current Condition History of Current Condition Onset Date 11/25/20 Current Complaints Urinary leakage with sneezing and sometimes feels weak in core. History of Current Condition Pt is 22 wks (due date 03/02/24). Pt experienced urinary leakage with sneezing after the of her first child 6 yrs ago. After her 2nd child in 11/25/2020 she wanted to come to therapy for a DR, but after deciding to come to therapy, the next day she found out she was (a month ago). She is currently being referred to therapy for urinary leakage, with mostly sneezing. She works out fairly regularly and has had a stomach pooch after her first child's . Pt is currently independent with ADLs and has no complaints of back pain at this time. Prior Treatments and Tests None Developmental History Developmental History Pt is G5, P2 of vaginal births . She had epiziotomy with first , mild tearing with epiziotomy with 2nd . Her children are 6 and 2 years old, turning 3 in 3 days. She had UBP during and LBP for a couple months post- after the last , that resolved on its own. Treatment Goals Patient/Caregiver Goals Pt goals: Resolve urinary leakage or learn how to limit urinary leakage, core strengthening to mitigate her diastasis post-. HEP. 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 Pt exercises regularly. PT-OP-C Subjective Start: 10/24/23 16:03 Freq: Status: Active Protocol: Document 11/08/23 07:25 LRN (Rec: 11/08/23 08:19 LRN [id number]) OP-PT Subjective Patient Comments Patient Comments Same. PT-OP-I Pelvic Floor Start: 10/24/23 16:03 Freq: Status: Active Protocol: Document 10/25/23 07:30 LRN (Rec: 10/25/23 08:16 LRN [id number]) Pelvic Floor Assessment Urine Urinary Symptoms Dribbling After Urination Leakage Cause Sneeze Other Leakage Causes If bladder is full and sneezes . Note: if crosses legs no leakage. Prolapse Prolapse Comments No complaints Perineal Descent Resting Absent Bearing Present Comments Pelvic Floor Comments Bulge of PF with cough, no lift of PF with contraction in supine. External PF appears tight on L side. PT-OP-J Posture/Palpation/Skin Start: 10/24/23 16:03 Freq: Status: Active Protocol: Document 10/25/23 07:30 LRN (Rec: 10/25/23 08:16 LRN [id number]) Posture Evaluation Position Standing L-Spine Posture Increased Lordosis Pelvis Posture Anteriorly Tilted Weight Distribution Balanced Knee Posture (L) Genu Valgus,(R) Genu Valgus Foot Arch (L) High Arch,(R) High Arch Comments Posture Comments Dowagers Hump, flattened upper T/S. PT-OP-K Range of Motion Start: 10/24/23 16:03 Freq: Status: Active Protocol: Document 11/08/23 07:25 LRN (Rec: 11/08/23 08:19 LRN [id number]) Hip Goniometric Range of Motion Hip Right Passive Testing Position Supine Straight Leg Raise 70 Abduction 20 Internal Rotation 40 External Rotation 65 Left Passive Testing Position Supine Straight Leg Raise 60 Abduction 30 Internal Rotation 40 External Rotation 70 PT-OP-M Strength Start: 10/24/23 16:03 Freq: Status: Active Protocol: Document 10/25/23 07:30 LRN (Rec: 10/25/23 08:16 LRN [id number]) Trunk Strength Trunk Manual Muscle Testing Core Stabilization Decreased rotational stability . Hip Strength Hip Manual Muscle Testing Right Extension (S1) 3 Fair Adduction 3 Fair Left Extension (S1) 3 Fair Adduction 3 Fair PT-OP-Q Treatments Start: 10/24/23 16:03 Freq: Status: Active Protocol: Document 11/08/23 07:25 LRN (Rec: 11/08/23 08:19 LRN [id number]) Therapeutic Exercises Sidelying Exercises TA tightening Side bilateral Reps/Minutes 3 breath hold x 10 Comments Cuing to breath normal. Sitting Exercises LE roll in/out w/Kegel Sitting Exercise Name Kegel/LE roll in-outs Resistance Lev1 TB/Ball Reps/Minutes Hold Kegel through 3 breaths x 5-8 Comments Cuing for breath on roll outs, Exhale on roll ins. Hip AD stretch Sitting Exercise Name Sitting with one leg AB for adductor stretch Side right Reps/Minutes 3' Comments Cued different positions, pt felt stretch mainly w/ hamstrings. Other Exercises 4pt- Cat/cow Other Exercise Name Cat/Cow Reps/Minutes 3' Comments Cuing for coordinated breath movement. 4pt LB stretch Other Exercise Name Rock Backs Reps/Minutes 3x 4Pt TA tightening Other Exercise Name 4 pt-TA tightening Reps/Minutes 3 breath hold x 4-5 Long sit HS/LE neural stretch Other Exercise Name Hamstring stretch (10 SH), f/b ankle DF (10x) x 3 sets Side bilateral Reps/Minutes 5' Neuro Re-Education Treatment Coordination Activities Transfers w/breath/Kegel Reps/Duration 2x Transfers w/breath Details Transfers with exhale on exertion or abdomen compression. Reps/Duration 2x Self-Care/Home Management Treatment Education Patient Education Home Exercise Program Activities Self-Care/Home Management Activities Issued & reviewed HEP: ...... .. PT-OP-T Assessment and Plan Start: 10/24/23 16:03 Freq: Status: Active Protocol: Document 11/08/23 07:25 LRN (Rec: 11/08/23 08:19 LRN [id number]) Physical Therapy Assessment Goals Three Impairment Decreased core stability (at this time mainly rotation) Short Term Goal (STG) Pt will be able to perform a TA contraction with drawing in her abdomen to improve core stability and mitigate onset of post- diastasis rectus. 11/08/23: Pt able to perform a TA in 4pt and sidelie. STG Duration 4 wks-11/22/23 progressed (need educ in sit & sup ) Halfway Goal (LTG) Strengthen core with pt able to maintain core stability with LE movement (MMT). LTG Duration 10 wks-01/03/24 Two Impairment Stress urinary incontinence due to weak PF Short Term Goal (STG) Pt stephanie be educated in proper squatting and lifting, transfers of stand<>sit<> supine, and moving in bed using breathwork/core tightening/PF contraction strengthening. 11/08/23: I/S pt in transfers with breathwork. STG Duration 4 wks-11/22/23 progressed Halfway Goal (LTG) Resolve or decrease urinary leakage with a strong sneeze w /o having to cross her legs, and learn how to limit urinary leakage with progression of . LTG Duration 10 wks-01/03/24 One Impairment Pt lacks appropriate self care HEP. Short Term Goal (STG) Education in proper methods for transfer with coordination of breathing, PF contractions . STG Duration 4 wks-11/22/23 Packing Machine Inspector Goal (LTG) Pt will be independent with a self care HEP of PF/core strengthening and hip ROM ( hamstring, IR) exercises. 11/08/23: HEP: Stretch: HS/ LE neural stretch, cat/cow, Child's Pose supported w/Diaph Breath/PF relax; Strengthen: LE roll in/out, 4 pt TA tight . LTG Duration 10 wks-01/03/24 progressed 11/08/23 Assessment Summary Assessment 33 yo female w/stress incontinence (MACRINA), 24 wks with 3rd child, previously diagnosed w/DR. Pt able to get a belly lift with sidelie TA contraction. She has decreased hip mobility: R hip AB, ER; L SLR. Physical Therapy Plan Frequency and Duration Frequency of Treatment 1x/Week Duration of treatment (weeks) 10 Plan of Care Start Date 10/25/23 Plan of Care End Date 01/03/24 Next Visit Focus/Plan Next Note Type Treatment Note Next Visit Plan Next: Discuss/educate in ex workouts that will be safe an appropriate for the future. EXER: Hip stretch (IR & R ER, hamstrings L>R), Strengthen core (rotation, TA) & hip (ext , AD) & Pelvic stabilization. EDUC: best practice transfers with coordination of breathing /TA/PF contraction, mvmt and exercise with core pressure mgmt, body mechanics and exercise, modality use (ICE). MANUAL: Sacral balancing if needed.
--- NOTE | 2023-11-15 16:57 | PT.OTN ---
Current Diagnoses Other specified disorders of muscle (11/15/23) Physical Therapy Treatment Note PT-OP-A Visit Information Start: 10/24/23 16:03 Freq: Status: Active Protocol: Document 11/15/23 07:31 LRN (Rec: 11/15/23 08:20 LRN [id number]) Out-Patient Physical Therapy Visit Information Visit Information Visit Type Treatment Note Visit Start Time 07:31 Visit Stop Time 08:14 Visit Number 3 Evaluation Information Evaluation Date 10/25/23 Precautions Precautions G5, P2. PT-OP-B Current Condition Start: 10/24/23 16:03 Freq: Status: Active Protocol: Document 10/25/23 07:30 LRN (Rec: 10/25/23 08:16 LRN [id number]) Current Condition History of Current Condition Onset Date 11/25/20 Current Complaints Urinary leakage with sneezing and sometimes feels weak in core. History of Current Condition Pt is 22 wks (due date 03/02/24). Pt experienced urinary leakage with sneezing after the of her first child 6 yrs ago. After her 2nd child in 11/25/2020 she wanted to come to therapy for a DR, but after deciding to come to therapy, the next day she found out she was (a month ago). She is currently being referred to therapy for urinary leakage, with mostly sneezing. She works out fairly regularly and has had a stomach pooch after her first child's . Pt is currently independent with ADLs and has no complaints of back pain at this time. Prior Treatments and Tests None Developmental History Developmental History Pt is G5, P2 of vaginal births . She had epiziotomy with first , mild tearing with epiziotomy with 2nd . Her children are 6 and 2 years old, turning 3 in 3 days. She had UBP during and LBP for a couple months post- after the last , that resolved on its own. Treatment Goals Patient/Caregiver Goals Pt goals: Resolve urinary leakage or learn how to limit urinary leakage, core strengthening to mitigate her diastasis post-. HEP. 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 Pt exercises regularly. PT-OP-C Subjective Start: 10/24/23 16:03 Freq: Status: Active Protocol: Document 11/15/23 07:31 LRN (Rec: 11/15/23 08:20 LRN [id number]) OP-PT Subjective Patient Comments Patient Comments Hasn't noticed leakage with sneezing unless the bladder is really full. States with shopping w/push pulling caused abdominal pain. PT-OP-I Pelvic Floor Start: 10/24/23 16:03 Freq: Status: Active Protocol: Document 10/25/23 07:30 LRN (Rec: 10/25/23 08:16 LRN [id number]) Pelvic Floor Assessment Urine Urinary Symptoms Dribbling After Urination Leakage Cause Sneeze Other Leakage Causes If bladder is full and sneezes . Note: if crosses legs no leakage. Prolapse Prolapse Comments No complaints Perineal Descent Resting Absent Bearing Present Comments Pelvic Floor Comments Bulge of PF with cough, no lift of PF with contraction in supine. External PF appears tight on L side. PT-OP-J Posture/Palpation/Skin Start: 10/24/23 16:03 Freq: Status: Active Protocol: Document 10/25/23 07:30 LRN (Rec: 10/25/23 08:16 LRN [id number]) Posture Evaluation Position Standing L-Spine Posture Increased Lordosis Pelvis Posture Anteriorly Tilted Weight Distribution Balanced Knee Posture (L) Genu Valgus,(R) Genu Valgus Foot Arch (L) High Arch,(R) High Arch Comments Posture Comments Dowagers Hump, flattened upper T/S. PT-OP-K Range of Motion Start: 10/24/23 16:03 Freq: Status: Active Protocol: Document 11/08/23 07:25 LRN (Rec: 11/08/23 08:19 LRN [id number]) Hip Goniometric Range of Motion Hip Right Passive Testing Position Supine Straight Leg Raise 70 Abduction 20 Internal Rotation 40 External Rotation 65 Left Passive Testing Position Supine Straight Leg Raise 60 Abduction 30 Internal Rotation 40 External Rotation 70 PT-OP-M Strength Start: 10/24/23 16:03 Freq: Status: Active Protocol: Document 10/25/23 07:30 LRN (Rec: 10/25/23 08:16 LRN [id number]) Trunk Strength Trunk Manual Muscle Testing Core Stabilization Decreased rotational stability . Hip Strength Hip Manual Muscle Testing Right Extension (S1) 3 Fair Adduction 3 Fair Left Extension (S1) 3 Fair Adduction 3 Fair PT-OP-Q Treatments Start: 10/24/23 16:03 Freq: Status: Active Protocol: Document 11/15/23 07:31 LRN (Rec: 11/15/23 08:20 LRN [id number]) Therapeutic Exercises Sidelying Exercises TA/Kegel/Clamshell/Reverse Clamshell Sidelying Exercise Name TA/Kegel/Clamshell/Reverse Clamshell Side bilateral Reps/Minutes 10 SH x 5 each Sitting Exercises HIp IR stretch Sitting Exercise Name Piriformis stretch (knee to opp shdr) Side bilateral Reps/Minutes 10 SH (3 breaths) x 6 each. Comments Cuing for positioning and hold times LE roll in/out w/Kegel Sitting Exercise Name Kegel/LE roll in-outs Resistance Lev1 TB/Ball Reps/Minutes Hold Kegel through 3 breaths x 5-8 Comments Cuing for breath on roll outs, Exhale on roll in and PF every other rep. Hip AD stretch Sitting Exercise Name Sitting with one leg AB for adductor stretch Side right Reps/Minutes 3' Comments Cued different positions, pt felt stretch mainly w/ hamstrings. Standing Exercises Wall Squats Standing Exercise Name Wall Squat w/TA/Kegel Reps/Minutes 10SH x 10 Other Exercises Long sit HS/LE neural stretch Other Exercise Name Hamstring stretch (10 SH), f/b ankle DF (10x) x 3 sets Side bilateral Reps/Minutes 5' Neuro Re-Education Treatment Coordination Activities Transfers w/breath/Kegel Details Stand<>sit<>supine Reps/Duration 3x Comments Cuing for proper movement. Self-Care/Home Management Treatment Activities Self-Care/Home Management Activities Previously Issued and reviewed HEP: Sitting: LE neural/ hamstring, LE roll in/out w/ TA/PF, 4 pt TA, 4pt Cat/cow, Supported child's pose w/ Diaphragmatic Breathing/PF relaxation. Issued & reviewed HEP: Sitting R Hip ER, Ayden hip IR and hip AD stretch. And standing wall squats w/TA & PF tight. Sidelie TA w/ clamshell & reverse clamshell. PT-OP-T Assessment and Plan Start: 10/24/23 16:03 Freq: Status: Active Protocol: Document 11/15/23 07:31 LRN (Rec: 11/15/23 08:20 LRN [id number]) Physical Therapy Assessment Goals Three Impairment Decreased core stability (at this time mainly rotation) Short Term Goal (STG) Pt will be able to perform a TA contraction with drawing in her abdomen to improve core stability and mitigate onset of post- diastasis rectus. 11/08/23: Pt able to perform a TA in 4pt and sidelie. 11/15/23: Pt educ in stand<> sit<>sup coodinating w/breath/ PF contraction. STG Duration 4 wks-11/22/23 (11/15/23: MET GOAL) Longterm Goal (LTG) Strengthen core with pt able to maintain core stability with LE movement (MMT). LTG Duration 10 wks-01/03/24 Two Impairment Stress urinary incontinence due to weak PF Short Term Goal (STG) Pt stephanie be educated in proper squatting and lifting, transfers of stand<>sit<> supine, and moving in bed using breathwork/core tightening/PF contraction strengthening. 11/08/23: I/S pt in transfers with breathwork. STG Duration 4 wks-11/22/23 progressed (need ed w/squat/lift/ ex prog) Longterm Goal (LTG) Resolve or decrease urinary leakage with a strong sneeze w /o having to cross her legs, and learn how to limit urinary leakage with progression of . 11/15/23: No urinary leakage with sneeze unless bladder is full. LTG Duration 10 wks-01/03/24 progressed 11/15/23 One Impairment Pt lacks appropriate self care HEP. Short Term Goal (STG) Education in proper methods for transfer with coordination of breathing, PF contractions . 11/15/23: Pt educated in transfers coordinating breath and PF contraction. STG Duration 4 wks-11/22/23 (11/15/23: MET GOAL) Respiratory Care Assistant Goal (LTG) Pt will be independent with a self care HEP of PF/core strengthening and hip ROM ( hamstring, IR) exercises. 11/08/23: HEP: Stretch: HS/ LE neural stretch, cat/cow, Child's Pose supported w/Diaph Breath/PF relax; Strengthen: LE roll in/out, 4 pt TA tight . 11/15/23: HEP: Sitting R Hip ER, Ayden hip IR and hip AD stretch. And standing wall squats w/TA & PF tight. Sidelie TA w/clamshell & reverse clamshell. LTG Duration 10 wks-01/03/24 progressed 11/15/23 Assessment Summary Assessment 33 yo female w/stress incontinence (MACRINA), with 3rd child, previously diagnosed w/ Good tolerance to TA/Kegel ex's. Lessening of MACRINA, able to sneeze mos of time w/o leakage . Physical Therapy Plan Frequency and Duration Frequency of Treatment 1x/Week Duration of treatment (weeks) 10 Plan of Care Start Date 10/25/23 Plan of Care End Date 01/03/24 Next Visit Focus/Plan Next Note Type Treatment Note Next Visit Plan Next: Discuss/educate in positions of comforts & ex workouts that will be safe an appropriate for the future. EXER: Strengthen core ( rotation, TA) & hip (ext, AD) & Pelvic stabilization. EDUC: mvmt and exercise with core pressure mgmt, body mechanics and exercise, modality use (ICE). MANUAL: Sacral balancing if needed.
--- NOTE | 2023-11-15 16:58 | PT.OTN ---
Current Diagnoses Other specified disorders of muscle (11/15/23) Physical Therapy Treatment Note PT-OP-A Visit Information Start: 10/24/23 16:03 Freq: Status: Active Protocol: Document 11/15/23 07:31 LRN (Rec: 11/15/23 08:20 LRN [id number]) Out-Patient Physical Therapy Visit Information Visit Information Visit Type Treatment Note Visit Start Time 07:31 Visit Stop Time 08:14 Visit Number 3 Evaluation Information Evaluation Date 10/25/23 Precautions Precautions G5, P2. PT-OP-B Current Condition Start: 10/24/23 16:03 Freq: Status: Active Protocol: Document 10/25/23 07:30 LRN (Rec: 10/25/23 08:16 LRN [id number]) Current Condition History of Current Condition Onset Date 11/25/20 Current Complaints Urinary leakage with sneezing and sometimes feels weak in core. History of Current Condition Pt is 22 wks (due date 03/02/24). Pt experienced urinary leakage with sneezing after the of her first child 6 yrs ago. After her 2nd child in 11/25/2020 she wanted to come to therapy for a DR, but after deciding to come to therapy, the next day she found out she was (a month ago). She is currently being referred to therapy for urinary leakage, with mostly sneezing. She works out fairly regularly and has had a stomach pooch after her first child's . Pt is currently independent with ADLs and has no complaints of back pain at this time. Prior Treatments and Tests None Developmental History Developmental History Pt is G5, P2 of vaginal births . She had epiziotomy with first , mild tearing with epiziotomy with 2nd . Her children are 6 and 2 years old, turning 3 in 3 days. She had UBP during and LBP for a couple months post- after the last , that resolved on its own. Treatment Goals Patient/Caregiver Goals Pt goals: Resolve urinary leakage or learn how to limit urinary leakage, core strengthening to mitigate her diastasis post-. HEP. 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 Pt exercises regularly. PT-OP-C Subjective Start: 10/24/23 16:03 Freq: Status: Active Protocol: Document 11/15/23 07:31 LRN (Rec: 11/15/23 08:20 LRN [id number]) OP-PT Subjective Patient Comments Patient Comments Hasn't noticed leakage with sneezing unless the bladder is really full. States with shopping w/push pulling caused abdominal pain. PT-OP-I Pelvic Floor Start: 10/24/23 16:03 Freq: Status: Active Protocol: Document 10/25/23 07:30 LRN (Rec: 10/25/23 08:16 LRN [id number]) Pelvic Floor Assessment Urine Urinary Symptoms Dribbling After Urination Leakage Cause Sneeze Other Leakage Causes If bladder is full and sneezes . Note: if crosses legs no leakage. Prolapse Prolapse Comments No complaints Perineal Descent Resting Absent Bearing Present Comments Pelvic Floor Comments Bulge of PF with cough, no lift of PF with contraction in supine. External PF appears tight on L side. PT-OP-J Posture/Palpation/Skin Start: 10/24/23 16:03 Freq: Status: Active Protocol: Document 10/25/23 07:30 LRN (Rec: 10/25/23 08:16 LRN [id number]) Posture Evaluation Position Standing L-Spine Posture Increased Lordosis Pelvis Posture Anteriorly Tilted Weight Distribution Balanced Knee Posture (L) Genu Valgus,(R) Genu Valgus Foot Arch (L) High Arch,(R) High Arch Comments Posture Comments Dowagers Hump, flattened upper T/S. PT-OP-K Range of Motion Start: 10/24/23 16:03 Freq: Status: Active Protocol: Document 11/08/23 07:25 LRN (Rec: 11/08/23 08:19 LRN [id number]) Hip Goniometric Range of Motion Hip Right Passive Testing Position Supine Straight Leg Raise 70 Abduction 20 Internal Rotation 40 External Rotation 65 Left Passive Testing Position Supine Straight Leg Raise 60 Abduction 30 Internal Rotation 40 External Rotation 70 PT-OP-M Strength Start: 10/24/23 16:03 Freq: Status: Active Protocol: Document 10/25/23 07:30 LRN (Rec: 10/25/23 08:16 LRN [id number]) Trunk Strength Trunk Manual Muscle Testing Core Stabilization Decreased rotational stability . Hip Strength Hip Manual Muscle Testing Right Extension (S1) 3 Fair Adduction 3 Fair Left Extension (S1) 3 Fair Adduction 3 Fair PT-OP-Q Treatments Start: 10/24/23 16:03 Freq: Status: Active Protocol: Document 11/15/23 07:31 LRN (Rec: 11/15/23 08:20 LRN [id number]) Therapeutic Exercises Sidelying Exercises TA/Kegel/Clamshell/Reverse Clamshell Sidelying Exercise Name TA/Kegel/Clamshell/Reverse Clamshell Side bilateral Reps/Minutes 10 SH x 5 each Sitting Exercises HIp IR stretch Sitting Exercise Name Piriformis stretch (knee to opp shdr) Side bilateral Reps/Minutes 10 SH (3 breaths) x 6 each. Comments Cuing for positioning and hold times LE roll in/out w/Kegel Sitting Exercise Name Kegel/LE roll in-outs Resistance Lev1 TB/Ball Reps/Minutes Hold Kegel through 3 breaths x 5-8 Comments Cuing for breath on roll outs, Exhale on roll in and PF every other rep. Hip AD stretch Sitting Exercise Name Sitting with one leg AB for adductor stretch Side right Reps/Minutes 3' Comments Cued different positions, pt felt stretch mainly w/ hamstrings. Standing Exercises Wall Squats Standing Exercise Name Wall Squat w/TA/Kegel Reps/Minutes 10SH x 10 Other Exercises Long sit HS/LE neural stretch Other Exercise Name Hamstring stretch (10 SH), f/b ankle DF (10x) x 3 sets Side bilateral Reps/Minutes 5' Neuro Re-Education Treatment Coordination Activities Transfers w/breath/Kegel Details Stand<>sit<>supine Reps/Duration 3x Comments Cuing for proper movement. Self-Care/Home Management Treatment Activities Self-Care/Home Management Activities Previously Issued and reviewed HEP: Sitting: LE neural/ hamstring, LE roll in/out w/ TA/PF, 4 pt TA, 4pt Cat/cow, Supported child's pose w/ Diaphragmatic Breathing/PF relaxation. Issued & reviewed HEP: Sitting R Hip ER, Ayden hip IR and hip AD stretch. And standing wall squats w/TA & PF tight. Sidelie TA w/ clamshell & reverse clamshell. PT-OP-T Assessment and Plan Start: 10/24/23 16:03 Freq: Status: Active Protocol: Document 11/15/23 07:31 LRN (Rec: 11/15/23 08:20 LRN [id number]) Physical Therapy Assessment Goals Three Impairment Decreased core stability (at this time mainly rotation) Short Term Goal (STG) Pt will be able to perform a TA contraction with drawing in her abdomen to improve core stability and mitigate onset of post- diastasis rectus. 11/08/23: Pt able to perform a TA in 4pt and sidelie. 11/15/23: Pt educ in stand<> sit<>sup coodinating w/breath/ PF contraction. STG Duration 4 wks-11/22/23 (11/15/23: MET GOAL) Penitentiary Goal (LTG) Strengthen core with pt able to maintain core stability with LE movement (MMT). LTG Duration 10 wks-01/03/24 Two Impairment Stress urinary incontinence due to weak PF Short Term Goal (STG) Pt stephanie be educated in proper squatting and lifting, transfers of stand<>sit<> supine, and moving in bed using breathwork/core tightening/PF contraction strengthening. 11/08/23: I/S pt in transfers with breathwork. STG Duration 4 wks-11/22/23 progressed (need ed w/squat/lift/ ex prog) Penitentiary Goal (LTG) Resolve or decrease urinary leakage with a strong sneeze w /o having to cross her legs, and learn how to limit urinary leakage with progression of . 11/15/23: No urinary leakage with sneeze unless bladder is full. LTG Duration 10 wks-01/03/24 progressed 11/15/23 One Impairment Pt lacks appropriate self care HEP. Short Term Goal (STG) Education in proper methods for transfer with coordination of breathing, PF contractions . 11/15/23: Pt educated in transfers coordinating breath and PF contraction. STG Duration 4 wks-11/22/23 (11/15/23: MET GOAL) Pathology Laboratory Director Goal (LTG) Pt will be independent with a self care HEP of PF/core strengthening and hip ROM ( hamstring, IR) exercises. 11/08/23: HEP: Stretch: HS/ LE neural stretch, cat/cow, Child's Pose supported w/Diaph Breath/PF relax; Strengthen: LE roll in/out, 4 pt TA tight . 11/15/23: HEP: Sitting R Hip ER, Ayden hip IR and hip AD stretch. And standing wall squats w/TA & PF tight. Sidelie TA w/clamshell & reverse clamshell. LTG Duration 10 wks-01/03/24 progressed 11/15/23 Assessment Summary Assessment 33 yo female w/stress incontinence (MACRINA), with 3rd child, previously diagnosed w/ Good tolerance to TA/Kegel ex's. Lessening of MACRINA, able to sneeze mos of time w/o leakage . Physical Therapy Plan Frequency and Duration Frequency of Treatment 1x/Week Duration of treatment (weeks) 10 Plan of Care Start Date 10/25/23 Plan of Care End Date 01/03/24 Next Visit Focus/Plan Next Note Type Treatment Note Next Visit Plan Next: Discuss/educate in positions of comforts & ex workouts that will be safe an appropriate for the future. EXER: Strengthen core ( rotation, TA) & hip (ext, AD) & Pelvic stabilization. EDUC: mvmt and exercise with core pressure mgmt, body mechanics and exercise, modality use (ICE). MANUAL: Sacral balancing if needed.
--- NOTE | 2023-11-22 15:51 | PT.OTN ---
Current Diagnoses Other specified disorders of muscle (11/22/23) Physical Therapy Treatment Note PT-OP-A Visit Information Start: 10/24/23 16:03 Freq: Status: Active Protocol: Document 11/22/23 07:32 LRN (Rec: 11/22/23 08:15 LRN [id number]) Out-Patient Physical Therapy Visit Information Visit Information Visit Start Time 07:32 Visit Stop Time 08:11 Visit Number 4 Evaluation Information Evaluation Date 10/25/23 Precautions Precautions G5, P2. PT-OP-B Current Condition Start: 10/24/23 16:03 Freq: Status: Active Protocol: Document 10/25/23 07:30 LRN (Rec: 10/25/23 08:16 LRN [id number]) Current Condition History of Current Condition Onset Date 11/25/20 Current Complaints Urinary leakage with sneezing and sometimes feels weak in core. History of Current Condition Pt is 22 wks (due date 03/02/24). Pt experienced urinary leakage with sneezing after the of her first child 6 yrs ago. After her 2nd child in 11/25/2020 she wanted to come to therapy for a DR, but after deciding to come to therapy, the next day she found out she was (a month ago). She is currently being referred to therapy for urinary leakage, with mostly sneezing. She works out fairly regularly and has had a stomach pooch after her first child's . Pt is currently independent with ADLs and has no complaints of back pain at this time. Prior Treatments and Tests None Developmental History Developmental History Pt is G5, P2 of vaginal births . She had epiziotomy with first , mild tearing with epiziotomy with 2nd . Her children are 6 and 2 years old, turning 3 in 3 days. She had UBP during and LBP for a couple months post- after the last , that resolved on its own. Treatment Goals Patient/Caregiver Goals Pt goals: Resolve urinary leakage or learn how to limit urinary leakage, core strengthening to mitigate her diastasis post-. HEP. 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 Pt exercises regularly. PT-OP-C Subjective Start: 10/24/23 16:03 Freq: Status: Active Protocol: Document 11/22/23 07:32 LRN (Rec: 11/22/23 08:15 LRN [id number]) OP-PT Subjective Patient Comments Patient Comments Getting a little of crotch pain, if lean over a counter, is getting a L LB (L SIJ) pain when coming back from leaning over. PT-OP-I Pelvic Floor Start: 10/24/23 16:03 Freq: Status: Active Protocol: Document 10/25/23 07:30 LRN (Rec: 10/25/23 08:16 LRN [id number]) Pelvic Floor Assessment Urine Urinary Symptoms Dribbling After Urination Leakage Cause Sneeze Other Leakage Causes If bladder is full and sneezes . Note: if crosses legs no leakage. Prolapse Prolapse Comments No complaints Perineal Descent Resting Absent Bearing Present Comments Pelvic Floor Comments Bulge of PF with cough, no lift of PF with contraction in supine. External PF appears tight on L side. PT-OP-J Posture/Palpation/Skin Start: 10/24/23 16:03 Freq: Status: Active Protocol: Document 10/25/23 07:30 LRN (Rec: 10/25/23 08:16 LRN [id number]) Posture Evaluation Position Standing L-Spine Posture Increased Lordosis Pelvis Posture Anteriorly Tilted Weight Distribution Balanced Knee Posture (L) Genu Valgus,(R) Genu Valgus Foot Arch (L) High Arch,(R) High Arch Comments Posture Comments Dowagers Hump, flattened upper T/S. PT-OP-K Range of Motion Start: 10/24/23 16:03 Freq: Status: Active Protocol: Document 11/08/23 07:25 LRN (Rec: 11/08/23 08:19 LRN [id number]) Hip Goniometric Range of Motion Hip Right Passive Testing Position Supine Straight Leg Raise 70 Abduction 20 Internal Rotation 40 External Rotation 65 Left Passive Testing Position Supine Straight Leg Raise 60 Abduction 30 Internal Rotation 40 External Rotation 70 PT-OP-M Strength Start: 10/24/23 16:03 Freq: Status: Active Protocol: Document 10/25/23 07:30 LRN (Rec: 10/25/23 08:16 LRN [id number]) Trunk Strength Trunk Manual Muscle Testing Core Stabilization Decreased rotational stability . Hip Strength Hip Manual Muscle Testing Right Extension (S1) 3 Fair Adduction 3 Fair Left Extension (S1) 3 Fair Adduction 3 Fair PT-OP-Q Treatments Start: 10/24/23 16:03 Freq: Status: Active Protocol: Document 11/22/23 07:32 LRN (Rec: 11/22/23 08:15 LRN [id number]) Therapeutic Exercises Prone Exercises TA tightening Prone Exercise Name TA tightening Equipment Used Pregnanacy Pillow Reps/Minutes 3' Sidelying Exercises TA/Kegel/Clamshell/Reverse Clamshell Sidelying Exercise Name TA/Kegel/Clamshell/Reverse Clamshell Side bilateral Reps/Minutes 6' Comments Cued for breathing pattern & TA tight for core stability. Sitting Exercises Hip ER stretch Sitting Exercise Name Hip ER stretch Side bilateral Reps/Minutes 30 x 2 HIp IR stretch Sitting Exercise Name Piriformis stretch (knee to opp shdr) Side bilateral Reps/Minutes 10 SH (3 breaths) x 6 each. Comments Cuing for positioning and hold times Hip AD stretch Sitting Exercise Name Sitting with one leg AB for adductor stretch Side right Reps/Minutes 3' Comments Cued different positions, pt felt stretch mainly w/ hamstrings. Standing Exercises PF Squat stretch Standing Exercise Name PF Squat stretch Reps/Minutes 2' Other Exercises 4pt LB stretch Other Exercise Name Child's Pose. Reps/Minutes 2' Manual Therapy Treatment Soft Tissue Mobilization LB/hip Body Location R QL, Upper and lower gluteal Mobilization Type Strumming,Sustained Pressure Intensity/Depth Moderate Body Position Prone on Preg Pillow Comments I/S pt after leaning over counter to square up feet and to tighten TA/LB before returning to standing to prevent onset of L LBP/SIJ pain. Joint Mobilizations MFR to Sacrum Joint On preg pillow: PA of Sacral sulcus & R WILMER. Reps/Duration 8' Comments Prone on Preg Pillow PT-OP-T Assessment and Plan Start: 10/24/23 16:03 Freq: Status: Active Protocol: Document 11/22/23 07:32 LRN (Rec: 11/22/23 08:15 LRN [id number]) Physical Therapy Assessment Goals Three Impairment Decreased core stability (at this time mainly rotation) Short Term Goal (STG) Pt will be able to perform a TA contraction with drawing in her abdomen to improve core stability and mitigate onset of post- diastasis rectus. 11/08/23: Pt able to perform a TA in 4pt and sidelie. 11/15/23: Pt educ in stand<> sit<>sup coodinating w/breath/ PF contraction. STG Duration 4 wks-11/22/23 (11/15/23: MET GOAL) Laboratory Animal Caretaker Goal (LTG) Strengthen core with pt able to maintain core stability with LE movement (MMT). LTG Duration 10 wks-01/03/24 Two Impairment Stress urinary incontinence due to weak PF Short Term Goal (STG) Pt stephanie be educated in proper squatting and lifting, transfers of stand<>sit<> supine, and moving in bed using breathwork/core tightening/PF contraction strengthening. 11/08/23: I/S pt in transfers with breathwork. STG Duration 4 wks-11/22/23 progressed (need ed w/squat/lift/ ex prog) Laboratory Animal Caretaker Goal (LTG) Resolve or decrease urinary leakage with a strong sneeze w /o having to cross her legs, and learn how to limit urinary leakage with progression of . 11/15/23: No urinary leakage with sneeze unless bladder is full. LTG Duration 10 wks-01/03/24 progressed 11/15/23 One Impairment Pt lacks appropriate self care HEP. Short Term Goal (STG) Education in proper methods for transfer with coordination of breathing, PF contractions . 11/15/23: Pt educated in transfers coordinating breath and PF contraction. STG Duration 4 wks-11/22/23 (11/15/23: MET GOAL) Laboratory Animal Caretaker Goal (LTG) Pt will be independent with a self care HEP of PF/core strengthening and hip ROM ( hamstring, IR) exercises. 11/08/23: HEP: Stretch: HS/ LE neural stretch, cat/cow, Child's Pose supported w/Diaph Breath/PF relax; Strengthen: LE roll in/out, 4 pt TA tight . 11/15/23: HEP: Sitting R Hip ER, Ayden hip IR and hip AD stretch. And standing wall squats w/TA & PF tight. Sidelie TA w/clamshell & reverse clamshell. 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 No pain after therapy. Physical Therapy Plan Frequency and Duration Frequency of Treatment 1x/Week Duration of treatment (weeks) 10 Plan of Care Start Date 10/25/23 Plan of Care End Date 01/03/24 Next Visit Focus/Plan Next Note Type Treatment Note Next Visit Plan Next: Check if continent w/ sneeze. Assess response to sacral balancing. Discuss/ educate in positions of comforts & ex workouts that will be safe an appropriate for the future. EXER: Strengthen core ( rotation, TA) & hip (ext, AD) & Pelvic stabilization. EDUC: mvmt and exercise with core pressure mgmt, body mechanics and exercise, modality use (ICE). MANUAL: Sacral balancing if needed.
--- NOTE | 2023-11-29 12:55 | PT.OTN ---
Current Diagnoses Other specified disorders of muscle (11/29/23) Physical Therapy Treatment Note PT-OP-A Visit Information Start: 10/24/23 16:03 Freq: Status: Active Protocol: Document 11/29/23 07:30 LRN (Rec: 11/29/23 08:16 LRN [id number]) Out-Patient Physical Therapy Visit Information Visit Information Visit Type Treatment Note Visit Start Time 07:30 Visit Stop Time 08:10 Visit Number 5 Evaluation Information Evaluation Date 10/25/23 Precautions Precautions G5, P2. PT-OP-B Current Condition Start: 10/24/23 16:03 Freq: Status: Active Protocol: Document 10/25/23 07:30 LRN (Rec: 10/25/23 08:16 LRN [id number]) Current Condition History of Current Condition Onset Date 11/25/20 Current Complaints Urinary leakage with sneezing and sometimes feels weak in core. History of Current Condition Pt is 22 wks (due date 03/02/24). Pt experienced urinary leakage with sneezing after the of her first child 6 yrs ago. After her 2nd child in 11/25/2020 she wanted to come to therapy for a DR, but after deciding to come to therapy, the next day she found out she was (a month ago). She is currently being referred to therapy for urinary leakage, with mostly sneezing. She works out fairly regularly and has had a stomach pooch after her first child's . Pt is currently independent with ADLs and has no complaints of back pain at this time. Prior Treatments and Tests None Developmental History Developmental History Pt is G5, P2 of vaginal births . She had epiziotomy with first , mild tearing with epiziotomy with 2nd . Her children are 6 and 2 years old, turning 3 in 3 days. She had UBP during and LBP for a couple months post- after the last , that resolved on its own. Treatment Goals Patient/Caregiver Goals Pt goals: Resolve urinary leakage or learn how to limit urinary leakage, core strengthening to mitigate her diastasis post-. HEP. 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 Pt exercises regularly. PT-OP-C Subjective Start: 10/24/23 16:03 Freq: Status: Active Protocol: Document 11/29/23 07:30 LRN (Rec: 11/29/23 08:16 LRN [id number]) OP-PT Subjective Patient Comments Patient Comments No urinary leakage. Hasn't done much because kids sick and has visitors. States after last session her back felt great, has pain at the end of the day. States she has been doing her ex workout consistently for 2 yrs, overall since 2014. PT-OP-I Pelvic Floor Start: 10/24/23 16:03 Freq: Status: Active Protocol: Document 10/25/23 07:30 LRN (Rec: 10/25/23 08:16 LRN [id number]) Pelvic Floor Assessment Urine Urinary Symptoms Dribbling After Urination Leakage Cause Sneeze Other Leakage Causes If bladder is full and sneezes . Note: if crosses legs no leakage. Prolapse Prolapse Comments No complaints Perineal Descent Resting Absent Bearing Present Comments Pelvic Floor Comments Bulge of PF with cough, no lift of PF with contraction in supine. External PF appears tight on L side. PT-OP-J Posture/Palpation/Skin Start: 10/24/23 16:03 Freq: Status: Active Protocol: Document 10/25/23 07:30 LRN (Rec: 10/25/23 08:16 LRN [id number]) Posture Evaluation Position Standing L-Spine Posture Increased Lordosis Pelvis Posture Anteriorly Tilted Weight Distribution Balanced Knee Posture (L) Genu Valgus,(R) Genu Valgus Foot Arch (L) High Arch,(R) High Arch Comments Posture Comments Dowagers Hump, flattened upper T/S. PT-OP-K Range of Motion Start: 10/24/23 16:03 Freq: Status: Active Protocol: Document 11/08/23 07:25 LRN (Rec: 11/08/23 08:19 LRN [id number]) Hip Goniometric Range of Motion Hip Right Passive Testing Position Supine Straight Leg Raise 70 Abduction 20 Internal Rotation 40 External Rotation 65 Left Passive Testing Position Supine Straight Leg Raise 60 Abduction 30 Internal Rotation 40 External Rotation 70 PT-OP-M Strength Start: 10/24/23 16:03 Freq: Status: Active Protocol: Document 10/25/23 07:30 LRN (Rec: 10/25/23 08:16 LRN [id number]) Trunk Strength Trunk Manual Muscle Testing Core Stabilization Decreased rotational stability . Hip Strength Hip Manual Muscle Testing Right Extension (S1) 3 Fair Adduction 3 Fair Left Extension (S1) 3 Fair Adduction 3 Fair PT-OP-Q Treatments Start: 10/24/23 16:03 Freq: Status: Active Protocol: Document 11/29/23 07:30 LRN (Rec: 11/29/23 08:16 LRN [id number]) Therapeutic Exercises Sidelying Exercises TA/Kegel/Clamshell/Reverse Clamshell Sidelying Exercise Name TA/Kegel/Clamshell/Reverse Clamshell Side bilateral Reps/Minutes 10' Comments Cued for breathing pattern & TA tight for core stability. Sitting Exercises Trunk Rot Sitting Exercise Name Active trunk rotation Side bilateral Reps/Minutes 5x each Hip ER stretch Sitting Exercise Name Hip ER stretch Side bilateral Reps/Minutes 30 x 1 HIp IR stretch Sitting Exercise Name Piriformis stretch (knee to opp shdr) Side bilateral Reps/Minutes 10 SH (3 breaths) x 1 each. Comments Cuing for positioning and hold times Hip AD stretch Sitting Exercise Name Sitting with one leg AB for adductor stretch Side right Reps/Minutes 3' Comments Cued different positions, pt felt stretch mainly w/ hamstrings. Other Exercises 4pt- Cat/cow Other Exercise Name Cat/Cow stretch Reps/Minutes 2' 4pt LB stretch Other Exercise Name Child's Pose. Reps/Minutes 2' 4Pt TA tightening Other Exercise Name 4 pt TA tightening Reps/Minutes 5SH x 10 Self-Care/Home Management Treatment Education Patient Education Home Exercise Program Other Education Discussed her current exercise program and reviewed what she is doing. Reviewed LE (squat , Guamanian lift, side lunge)/UE (bicep curls, tricep press, sometimes chest press) workout. Recommended pt lunges be lesser distance, and as progresses in to avoid lunging. Reviewed breathwork and PF contractions with LE work out and TA tightening with UE workouts. PT-OP-T Assessment and Plan Start: 10/24/23 16:03 Freq: Status: Active Protocol: Document 11/29/23 07:30 LRN (Rec: 11/29/23 08:16 LRN [id number]) Physical Therapy Assessment Goals Three Impairment Decreased core stability (at this time mainly rotation) Short Term Goal (STG) Pt will be able to perform a TA contraction with drawing in her abdomen to improve core stability and mitigate onset of post- diastasis rectus. 11/08/23: Pt able to perform a TA in 4pt and sidelie. 11/15/23: Pt educ in stand<> sit<>sup coodinating w/breath/ PF contraction. STG Duration 4 wks-11/22/23 (11/15/23: MET GOAL) Sleep Manager Goal (LTG) Strengthen core with pt able to maintain core stability with LE movement (MMT). LTG Duration 10 wks-01/03/24 Two Impairment Stress urinary incontinence due to weak PF Short Term Goal (STG) Pt stephanie be educated in proper squatting and lifting, transfers of stand<>sit<> supine, and moving in bed using breathwork/core tightening/PF contraction strengthening. 11/08/23: I/S pt in transfers with breathwork. 11/29/23: Educated pt in squat/lift/ex prog, with correct breathwork/core & PF tightening STG Duration 4 wks-11/22/23 (11/29/23: MET GOAL) Jail Goal (LTG) Resolve or decrease urinary leakage with a strong sneeze w /o having to cross her legs, and learn how to limit urinary leakage with progression of . 11/15/23: No urinary leakage with sneeze unless bladder is full. 11/29/23: No urinary leakage. LTG Duration 10 wks-01/03/24 (11/29/23: MET GOAL) One Impairment Pt lacks appropriate self care HEP. Short Term Goal (STG) Education in proper methods for transfer with coordination of breathing, PF contractions . 11/15/23: Pt educated in transfers coordinating breath and PF contraction. STG Duration 4 wks-11/22/23 (11/15/23: MET GOAL) Jail Goal (LTG) Pt will be independent with a self care HEP of PF/core strengthening and hip ROM ( hamstring, IR) exercises. 11/08/23: HEP: Stretch: HS/ LE neural stretch, cat/cow, Child's Pose supported w/Diaph Breath/PF relax; Strengthen: LE roll in/out, 4 pt TA tight . 11/15/23: HEP: Sitting R Hip ER, Ayden hip IR and hip AD stretch. And standing wall squats w/TA & PF tight. Sidelie TA w/clamshell & reverse clamshell. 11/29/23: I/S pt in supine November. LTG Duration 10 wks-01/03/24 progressed 11/29/23 Assessment Summary Assessment 33 yo female w/stress incontinence (MACRINA), with 3rd child, previously diagnosed w/. Pt is ~26 wks (due date 03/02/24). + response to sacral balancing with no c/o LBP. Pt urinary incontinence appears resolved. Pt needing core/hip strengthening. Body mechanics look good for exercise. Pt is not consistent with body mechanics with ADLs, but is not more aware to focus on this at home . Physical Therapy Plan Frequency and Duration Frequency of Treatment 1x/Week Duration of treatment (weeks) 10 Plan of Care Start Date 10/25/23 Plan of Care End Date 01/03/24 Next Visit Focus/Plan Next Note Type Treatment Note Next Visit Plan DC in 1-2 visits? Next: Check if continent w/sneeze. Review/issue HEP: supine November and try bridge. Discuss /educate in positions of comfort that will be safe an appropriate for the future ( sleeping, sitting). Check for core stability with LE mvmt. EXER: ADD hip (ext, AD) strengthehing & continue: core (rotation,TA) & Pelvic stabilization. Monitor: mvmt and exercise with core pressure mgmt, body mechanics.
--- NOTE | 2023-12-06 15:52 | PT.OTN ---
Current Diagnoses Other specified disorders of muscle (12/06/23) Physical Therapy Treatment Note PT-OP-A Visit Information Start: 10/24/23 16:03 Freq: Status: Active Protocol: Document 12/06/23 07:26 LRN (Rec: 12/06/23 08:18 LRN [id number]) Out-Patient Physical Therapy Visit Information Visit Information Visit Type Treatment Note Visit Start Time 07:30 Visit Stop Time 08:10 Visit Number 6 Evaluation Information Evaluation Date 10/25/23 Precautions Precautions G5, P2. PT-OP-B Current Condition Start: 10/24/23 16:03 Freq: Status: Active Protocol: Document 10/25/23 07:30 LRN (Rec: 10/25/23 08:16 LRN [id number]) Current Condition History of Current Condition Onset Date 11/25/20 Current Complaints Urinary leakage with sneezing and sometimes feels weak in core. History of Current Condition Pt is 22 wks (due date 03/02/24). Pt experienced urinary leakage with sneezing after the of her first child 6 yrs ago. After her 2nd child in 11/25/2020 she wanted to come to therapy for a DR, but after deciding to come to therapy, the next day she found out she was (a month ago). She is currently being referred to therapy for urinary leakage, with mostly sneezing. She works out fairly regularly and has had a stomach pooch after her first child's . Pt is currently independent with ADLs and has no complaints of back pain at this time. Prior Treatments and Tests None Developmental History Developmental History Pt is G5, P2 of vaginal births . She had epiziotomy with first , mild tearing with epiziotomy with 2nd . Her children are 6 and 2 years old, turning 3 in 3 days. She had UBP during and LBP for a couple months post- after the last , that resolved on its own. Treatment Goals Patient/Caregiver Goals Pt goals: Resolve urinary leakage or learn how to limit urinary leakage, core strengthening to mitigate her diastasis post-. HEP. 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 Pt exercises regularly. PT-OP-C Subjective Start: 10/24/23 16:03 Freq: Status: Active Protocol: Document 12/06/23 07:26 LRN (Rec: 12/06/23 08:18 LRN [id number]) OP-PT Subjective Patient Comments Patient Comments States she was sick last week, so tired. Standing sneezing and coughing didn't leak, but sitting on floor cross legged caused leakage. PT-OP-I Pelvic Floor Start: 10/24/23 16:03 Freq: Status: Active Protocol: Document 10/25/23 07:30 LRN (Rec: 10/25/23 08:16 LRN [id number]) Pelvic Floor Assessment Urine Urinary Symptoms Dribbling After Urination Leakage Cause Sneeze Other Leakage Causes If bladder is full and sneezes . Note: if crosses legs no leakage. Prolapse Prolapse Comments No complaints Perineal Descent Resting Absent Bearing Present Comments Pelvic Floor Comments Bulge of PF with cough, no lift of PF with contraction in supine. External PF appears tight on L side. PT-OP-J Posture/Palpation/Skin Start: 10/24/23 16:03 Freq: Status: Active Protocol: Document 10/25/23 07:30 LRN (Rec: 10/25/23 08:16 LRN [id number]) Posture Evaluation Position Standing L-Spine Posture Increased Lordosis Pelvis Posture Anteriorly Tilted Weight Distribution Balanced Knee Posture (L) Genu Valgus,(R) Genu Valgus Foot Arch (L) High Arch,(R) High Arch Comments Posture Comments Dowagers Hump, flattened upper T/S. PT-OP-K Range of Motion Start: 10/24/23 16:03 Freq: Status: Active Protocol: Document 11/08/23 07:25 LRN (Rec: 11/08/23 08:19 LRN [id number]) Hip Goniometric Range of Motion Hip Right Passive Testing Position Supine Straight Leg Raise 70 Abduction 20 Internal Rotation 40 External Rotation 65 Left Passive Testing Position Supine Straight Leg Raise 60 Abduction 30 Internal Rotation 40 External Rotation 70 PT-OP-M Strength Start: 10/24/23 16:03 Freq: Status: Active Protocol: Document 10/25/23 07:30 LRN (Rec: 10/25/23 08:16 LRN [id number]) Trunk Strength Trunk Manual Muscle Testing Core Stabilization Decreased rotational stability . Hip Strength Hip Manual Muscle Testing Right Extension (S1) 3 Fair Adduction 3 Fair Left Extension (S1) 3 Fair Adduction 3 Fair PT-OP-Q Treatments Start: 10/24/23 16:03 Freq: Status: Active Protocol: Document 12/06/23 07:26 LRN (Rec: 12/06/23 08:18 LRN [id number]) Therapeutic Exercises Supine Exercises Bridge Supine Exercise Name Bridge Reps/Minutes 3' Comments Cued to lift rolling up from LB, & breathwork, f/b sidelie rest for breath TA March Supine Exercise Name TA March Side bilateral Reps/Minutes 3' Comments Pt req'd sidelie rest for breath after. Sidelying Exercises TA/Kegel/Clamshell/Reverse Clamshell Sidelying Exercise Name TA/Kegel/Clamshell/Reverse Clamshell Side bilateral Reps/Minutes 10' Comments Cued for breathing pattern & TA tight for core stability. Sitting Exercises TA/March Sitting Exercise Name TA/March alternate lifts. Side bilateral Reps/Minutes 3' Comments Rest between sets of 4 lifts, changed start position to <90 deg's hip flex. Trunk Rot Sitting Exercise Name Active trunk rotation Side bilateral Reps/Minutes 4' Comments R rot a little weaker tyrone L rot. HIp IR stretch Sitting Exercise Name Piriformis stretch (knee to opp shdr) Side bilateral Reps/Minutes 10 SH (3 breaths) x 8 each. Comments Cuing for positioning and hold times based on ms relaxation Hip AD stretch Sitting Exercise Name Sitting with one leg AB for adductor stretch Side right Reps/Minutes 3' Comments Cued different positions, pt felt stretch mainly w/ hamstrings. Other Exercises 4pt- Cat/cow Other Exercise Name Cat/Cow stretch Reps/Minutes 2' 4pt LB stretch Other Exercise Name Child's Pose. Reps/Minutes 2' 4Pt TA tightening Other Exercise Name 4 pt TA tightening Reps/Minutes 5SH x 15 Self-Care/Home Management Treatment Education Patient Education Home Exercise Program Other Education Discuss/educate in positions of comfort that will be safe an appropriate for the future (sleeping, sitting), with pillow and towel supports. Activities Self-Care/Home Management Activities Issued HEP: Child's Pose w/ Diaphramatic Breathing/PF relaxation & Sup November & written I/S for bridge with precaution I/S for stopping if breathing hindered or SOB. PT-OP-T Assessment and Plan Start: 10/24/23 16:03 Freq: Status: Active Protocol: Document 12/06/23 07:26 LRN (Rec: 12/06/23 08:18 LRN [id number]) Physical Therapy Assessment Goals Three Impairment Decreased core stability (at this time mainly rotation) Short Term Goal (STG) Pt will be able to perform a TA contraction with drawing in her abdomen to improve core stability and mitigate onset of post- diastasis rectus. 11/08/23: Pt able to perform a TA in 4pt and sidelie. 11/15/23: Pt educ in stand<> sit<>sup coodinating w/breath/ PF contraction. STG Duration 4 wks-11/22/23 (11/15/23: MET GOAL) Longterm Goal (LTG) Strengthen core with pt able to maintain core stability with LE movement (MMT). 12/06/23: TA/March in sup & sit; Bridge. LTG Duration 10 wks-01/03/24 progressed 12/06/23 Two Impairment Stress urinary incontinence due to weak PF Short Term Goal (STG) Pt stephanie be educated in proper squatting and lifting, transfers of stand<>sit<> supine, and moving in bed using breathwork/core tightening/PF contraction strengthening. 11/08/23: I/S pt in transfers with breathwork. 11/29/23: Educated pt in squat/lift/ex prog, with correct breathwork/core & PF tightening STG Duration 4 wks-11/22/23 (11/29/23: MET GOAL) Parent Trainer Goal (LTG) Resolve or decrease urinary leakage with a strong sneeze w /o having to cross her legs, and learn how to limit urinary leakage with progression of . 11/15/23: No urinary leakage with sneeze unless bladder is full. 11/29/23: No urinary leakage. LTG Duration 10 wks-01/03/24 (11/29/23: MET GOAL) One Impairment Pt lacks appropriate self care HEP. Short Term Goal (STG) Education in proper methods for transfer with coordination of breathing, PF contractions . 11/15/23: Pt educated in transfers coordinating breath and PF contraction. STG Duration 4 wks-11/22/23 (11/15/23: MET GOAL) Parent Trainer Goal (LTG) Pt will be independent with a self care HEP of PF/core strengthening and hip ROM ( hamstring, IR) exercises. 11/08/23: HEP: Stretch: HS/ LE neural stretch, cat/cow, Child's Pose supported w/Diaph Breath/PF relax; Strengthen: LE roll in/out, 4 pt TA tight . 11/15/23: HEP: Sitting R Hip ER, Ayden hip IR and hip AD stretch. And standing wall squats w/TA & PF tight. Sidelie TA w/clamshell & reverse clamshell. 11/29/23: I/S pt in supine TA November. 12/06/23: HEP: Child's Pose w /Diaphramatic Breathing/PF relaxation & Sup November & written I/S for bridge with precaution I/S for stopping if breathing hindered or SOB. LTG Duration 10 wks-01/03/24 progressed 12/06/23 Assessment Summary Assessment 33 yo female w/stress incontinence (MACRINA), 27 wks with 3rd child, previously diagnosed w/. Core rot weakness with movements of LE's. Pt demonstrated ability to tighten PF before coughing after initial cuing. Pt had good to fair tolerance to supine ex of TA november & bridge , but needing sidelie rest for breath. With bridge ex pt felt good while doing exercise and afterwards. Pt appears to understand when SOB to stop exer's. Pt progressing well. Physical Therapy Plan Frequency and Duration Frequency of Treatment 1x/Week Duration of treatment (weeks) 10 Plan of Care Start Date 10/25/23 Plan of Care End Date 01/03/24 Next Visit Focus/Plan Next Note Type Treatment Note Next Visit Plan Pt on vacation for a week, will return in 2 wks. DC in 1 visits? Next: ADD hip (ext ) strengthehing & continue: core (rotation,TA) & Pelvic stabilization. Focus on Trunk rotation. Monitor: mvmt and exercise with core pressure mgmt, body mechanics.
--- NOTE | 2023-12-20 17:15 | PT.OTN ---
Current Diagnoses Other specified disorders of muscle (12/20/23) Physical Therapy Treatment Note PT-OP-A Visit Information Start: 10/24/23 16:03 Freq: Status: Active Protocol: Document 12/20/23 07:34 LRN (Rec: 12/20/23 08:19 LRN [id number]) Out-Patient Physical Therapy Visit Information Visit Information Visit Type Treatment Note Visit Start Time 07:34 Visit Stop Time 08:15 Visit Number 7 Evaluation Information Evaluation Date 10/25/23 Precautions Precautions G5, P2. PT-OP-B Current Condition Start: 10/24/23 16:03 Freq: Status: Active Protocol: Document 10/25/23 07:30 LRN (Rec: 10/25/23 08:16 LRN [id number]) Current Condition History of Current Condition Onset Date 11/25/20 Current Complaints Urinary leakage with sneezing and sometimes feels weak in core. History of Current Condition Pt is 22 wks (due date 03/02/24). Pt experienced urinary leakage with sneezing after the of her first child 6 yrs ago. After her 2nd child in 11/25/2020 she wanted to come to therapy for a DR, but after deciding to come to therapy, the next day she found out she was (a month ago). She is currently being referred to therapy for urinary leakage, with mostly sneezing. She works out fairly regularly and has had a stomach pooch after her first child's . Pt is currently independent with ADLs and has no complaints of back pain at this time. Prior Treatments and Tests None Developmental History Developmental History Pt is G5, P2 of vaginal births . She had epiziotomy with first , mild tearing with epiziotomy with 2nd . Her children are 6 and 2 years old, turning 3 in 3 days. She had UBP during and LBP for a couple months post- after the last , that resolved on its own. Treatment Goals Patient/Caregiver Goals Pt goals: Resolve urinary leakage or learn how to limit urinary leakage, core strengthening to mitigate her diastasis post-. HEP. 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 Pt exercises regularly. PT-OP-C Subjective Start: 10/24/23 16:03 Freq: Status: Active Protocol: Document 12/20/23 07:34 LRN (Rec: 12/20/23 08:19 LRN [id number]) OP-PT Subjective Patient Comments Patient Comments In 3rd trimester (29 wks), starting to have hip (lying on hips) and pubic pain (rolling over) first in AM and at night. Feeling okay. It's the best she's felt with . Ready for discharge to [facility]. Patient Questionnaires Pelvic Pain and Urgency/Frequency Patient Symptom Scale Pelvic Pain Score 4 PT-OP-I Pelvic Floor Start: 10/24/23 16:03 Freq: Status: Active Protocol: Document 10/25/23 07:30 LRN (Rec: 10/25/23 08:16 LRN [id number]) Pelvic Floor Assessment Urine Urinary Symptoms Dribbling After Urination Leakage Cause Sneeze Other Leakage Causes If bladder is full and sneezes . Note: if crosses legs no leakage. Prolapse Prolapse Comments No complaints Perineal Descent Resting Absent Bearing Present Comments Pelvic Floor Comments Bulge of PF with cough, no lift of PF with contraction in supine. External PF appears tight on L side. PT-OP-J Posture/Palpation/Skin Start: 10/24/23 16:03 Freq: Status: Active Protocol: Document 10/25/23 07:30 LRN (Rec: 10/25/23 08:16 LRN [id number]) Posture Evaluation Position Standing L-Spine Posture Increased Lordosis Pelvis Posture Anteriorly Tilted Weight Distribution Balanced Knee Posture (L) Genu Valgus,(R) Genu Valgus Foot Arch (L) High Arch,(R) High Arch Comments Posture Comments Dowagers Hump, flattened upper T/S. PT-OP-K Range of Motion Start: 10/24/23 16:03 Freq: Status: Active Protocol: Document 11/08/23 07:25 LRN (Rec: 11/08/23 08:19 LRN [id number]) Hip Goniometric Range of Motion Hip Right Passive Testing Position Supine Straight Leg Raise 70 Abduction 20 Internal Rotation 40 External Rotation 65 Left Passive Testing Position Supine Straight Leg Raise 60 Abduction 30 Internal Rotation 40 External Rotation 70 PT-OP-M Strength Start: 10/24/23 16:03 Freq: Status: Active Protocol: Document 10/25/23 07:30 LRN (Rec: 10/25/23 08:16 LRN [id number]) Trunk Strength Trunk Manual Muscle Testing Core Stabilization Decreased rotational stability . Hip Strength Hip Manual Muscle Testing Right Extension (S1) 3 Fair Adduction 3 Fair Left Extension (S1) 3 Fair Adduction 3 Fair PT-OP-Q Treatments Start: 10/24/23 16:03 Freq: Status: Active Protocol: Document 12/20/23 07:34 LRN (Rec: 12/20/23 08:19 LRN [id number]) Therapeutic Exercises Supine Exercises Pelvis closing Supine Exercise Name Vignesh hip AD (3 positions) & hip AB (3 positions) Reps/Minutes 10 SH x 1 each position. Bridge Supine Exercise Name Bridge Reps/Minutes 3' Comments Cued to lift rolling up from LB, & breathwork, f/b sidelie rest for breath TA March Supine Exercise Name TA March Side bilateral Reps/Minutes 3' Comments Pt req'd sidelie rest for breath after. Sidelying Exercises TA/Kegel/Clamshell/Reverse Clamshell Sidelying Exercise Name TA/Kegel/Clamshell/Reverse Clamshell Side bilateral Reps/Minutes 8' Comments Cued for breathing pattern & TA tight for core stability. Sitting Exercises Hip ER Sitting Exercise Name Ayden resisted BKFO Trunk Rot Sitting Exercise Name Active trunk rotation Side bilateral Reps/Minutes 4' Comments R rot a little weaker tyrone L rot. Hip AD stretch Sitting Exercise Name Sitting with one leg AB for adductor stretch Side bilateral Reps/Minutes 3' Comments Cued different positions, pt felt stretch mainly w/ hamstrings & TA tight. Standing Exercises Hip Ext Standing Exercise Name Hanging onto counter Side bilateral Reps/Minutes 10x each Comments Cued for breath, TA tight, Glut squeeze. Other Exercises Hip flexor stretch in 1/2 kneel Side bilateral Reps/Minutes 10x each 4pt LB stretch Other Exercise Name Child's Pose. Reps/Minutes 2' 4Pt TA tightening Other Exercise Name 4 pt TA tightening Reps/Minutes 5SH x 15 Self-Care/Home Management Treatment Education Patient Education Home Exercise Program,Posture Other Education Discussed pt's current home exercises and made recommendations to avoid squatting ex's that cause pain and to move with knees together with transfers. Reviewed stretches of question regarding any that can cause pubic pain or her self- modification of exercises for comfort. Pt advise to not do ex's that cause pain. Encouraged walking for exercise, but on referable on the level. Discussed nighttime positioning to avoid draping L leg over R in sidelie as it may be cause of increased R SIJ discomfort. Discussed using pillows to support top leg. Activities Self-Care/Home Management Activities Issued & reviewed HEP: Standing hip Ext strengthening ) upright andleaning over secure surface; Instruction in after ex of Vignesh hip AB/AD sequence that can be done prior to if there is no pain. PT-OP-T Assessment and Plan Start: 10/24/23 16:03 Freq: Status: Active Protocol: Document 12/20/23 07:34 LRN (Rec: 12/20/23 08:19 LRN [id number]) Physical Therapy Assessment Goals Three Impairment Decreased core stability (at this time mainly rotation) Short Term Goal (STG) Pt will be able to perform a TA contraction with drawing in her abdomen to improve core stability and mitigate onset of post- diastasis rectus. 11/08/23: Pt able to perform a TA in 4pt and sidelie. 11/15/23: Pt educ in stand<> sit<>sup coodinating w/breath/ PF contraction. STG Duration 4 wks-11/22/23 (11/15/23: MET GOAL) Soap Drier Tender Goal (LTG) Strengthen core with pt able to maintain core stability with LE movement (MMT). 12/06/23: TA/March in sup & sit; Bridge. 12/20/23: Trunk rotation ex ( AROM sitting) for strengthening. LTG Duration 10 wks-01/03/24 (progressed 12/20/23: NOT MET GOAL) Two Impairment Stress urinary incontinence due to weak PF Short Term Goal (STG) Pt stephanie be educated in proper squatting and lifting, transfers of stand<>sit<> supine, and moving in bed using breathwork/core tightening/PF contraction strengthening. 11/08/23: I/S pt in transfers with breathwork. 11/29/23: Educated pt in squat/lift/ex prog, with correct breathwork/core & PF tightening STG Duration 4 wks-11/22/23 (11/29/23: MET GOAL) Soap Drier Tender Goal (LTG) Resolve or decrease urinary leakage with a strong sneeze w /o having to cross her legs, and learn how to limit urinary leakage with progression of . 11/15/23: No urinary leakage with sneeze unless bladder is full. 11/29/23: No urinary leakage. LTG Duration 10 wks-01/03/24 (11/29/23: MET GOAL) One Impairment Pt lacks appropriate self care HEP. Short Term Goal (STG) Education in proper methods for transfer with coordination of breathing, PF contractions . 11/15/23: Pt educated in transfers coordinating breath and PF contraction. STG Duration 4 wks-11/22/23 (11/15/23: MET GOAL) Soap Drier Tender Goal (LTG) Pt will be independent with a self care HEP of PF/core strengthening and hip ROM ( hamstring, IR) exercises. 11/08/23: HEP: Stretch: HS/ LE neural stretch, cat/cow, Child's Pose supported w/Diaph Breath/PF relax; Strengthen: LE roll in/out, 4 pt TA tight . 11/15/23: HEP: Sitting R Hip ER, Ayden hip IR and hip AD stretch. And standing wall squats w/TA & PF tight. Sidelie TA w/clamshell & reverse clamshell. 11/29/23: I/S pt in supine TA November. 12/06/23: HEP: Child's Pose w /Diaphramatic Breathing/PF relaxation & Sup November & written I/S for bridge with precaution I/S for stopping if breathing hindered or SOB. 12/20/23: HEP: Standing hip extension and sequence of vignesh hip AB/AD. LTG Duration 10 wks-01/03/24 (12/20/23: MET GOAL) Assessment Summary Assessment 33 yo female initially seen for stress incontinence. Today she is reports being 27 wks with 3rd child ( prior to was diagnosed with a diastasis rectus). She is no longer experiencing urinary incontinence and has occasional pubic pain from exercise that stress her pubic symphysis. We have talked about her exercise program and she has been advised as to which exercise to avoid and reduce movment if onset of pain occurs. She has core rotational weakness with movements of LE's and is on a HEP of core strengthening exercises. She is starting to also get hip pain from lying on her hips and has been educated in best nighttime posturing to limit hip pain. The pt feels ready for discharge to her HEP; therefore the pt will be discharged today. It is expected that as she progresses in her she might develop other pains or dysfunction; therefore return to therapy would be appropriate with a new referral. Physical Therapy Plan Frequency and Duration Frequency of Treatment 1x/Week Duration of treatment (weeks) 10 Plan of Care Start Date 10/25/23 Plan of Care End Date 01/03/24 Discharge Physical Therapy Discharge Reasons Patient Request Discharge Comments See assessment above. Thank you for your referral.
== END 2023-12-23 12:29 | disposition home or self-care (01) ==
LOC: PHYS 07:30
PROVIDERS: Family Provider Family Medicine; PCP Family Medicine; Referring Provider Family Medicine; Visit Provider Family Medicine
DX: M62.89 Other specified disorders of muscle (principal)
CPT/HCPCS: 97110; 97112; 97140; 97162; 97535

== ENCOUNTER → 2024-01-10 07:54 | Outpatient (CLI) | payer BC, SELFPAY ==
--- NOTE | 2024-01-10 07:54 | DI.US.S_ITS ---
PROCEDURE: US OB LIMITED INDICATIONS: Growth OUTSIDE/PRIOR DATING DATA: Last menstrual period (LMP): Not available. LMP-based estimated date of delivery (DANIELLE): Not available. First dating scan (date and location): 07/31/2023. Estimated date of delivery (DANIELLE) from first dating scan: 03/02/2024. The calculations are made using the working DANIELLE of 03/02/2024. TECHNIQUE: Real-time scanning was performed of the fetus, with image documentation and biometric measurements. Biophysical profile was also obtained. Endovaginal scanning: Not performed COMPARISON: [facility], RENAL COMPLETE, 10/24/2023, 13:05. [facility] OB >= 14 WEEKS FETUS, 10/11/2023, 14:24. [facility] OB LIMITED, 10/13/2020, 16:16. FINDINGS: General: A single living intrauterine gestation is present. Presentation: Vertex. Placenta: Placental position is posterior , without previa. Amniotic fluid index: 10.2 cm, normal range is 5-24 cm. Single deepest vertical pocket is 5.2 cm. heart rate: 163 beats per minute. Maternal cervical canal: Closed and 3.4 cm long. Normal lower limit is 2.5 cm. biometrics: Biparietal diameter: 31 weeks 2 days Head circumference: 33 weeks 4 days Abdominal circumference: 35 weeks 5 days Femur length: 33 weeks 5 days Clinically estimated gestational age: 32 weeks 4 days Composite gestational age from present scan: 33 weeks 4 days Estimated weight and percentile: 2442 g; 92% for gestational age. Other: Note is made of nuchal cord. IMPRESSION: 1. A single living intrauterine gestation appropriate interval growth. 2. The weight is 92% for gestational age. 3. Nuchal cord. We strive to produce accurate, complete, and clear reports of imaging services. To assist us in improving patient care, this report was composed using standard report templates and voice recognition software. Therefore, it may contain abnormal punctuation, insertions and/or omissions. Occasional wrong-word or sound-alike substitutions may occur. Though we review the report and make efforts to correct it, we do recommend that the report be read carefully in proper context to recognize any text inaccuracies. Dictated by: Cricket Calix M.D. on 01/10/2024 at 13:53 Approved by: Cricket Calix M.D. on 01/10/2024 at 13:58
== END ==
LOC: US 07:54
PROVIDERS: Family Provider Family Medicine; PCP Family Medicine; Referring Provider Family Medicine; Visit Provider Family Medicine
DX: Z34.80 Encounter for supervision of other normal pregnancy, unspecified trimester (principal)
CPT/HCPCS: 76815

== ENCOUNTER → 2024-01-31 10:52 | Outpatient (CLI) | payer BC, SELFPAY | PROVIDERS: Family Provider Family Medicine; PCP Family Medicine; Visit Provider Family Medicine | DX: Z34.80 Encounter for supervision of other normal pregnancy, unspecified trimester (principal) | CPT/HCPCS: 87653 ==

== ENCOUNTER → 2024-02-21 08:14 | Outpatient (CLI) | payer BC, SELFPAY ==
--- NOTE | 2024-02-21 08:15 | DI.US.S_ITS ---
PROCEDURE: US OB LIMITED INDICATIONS: EFW OUTSIDE/PRIOR DATING DATA: Last menstrual period (LMP): Not available. LMP-based estimated date of delivery (DANIELLE): Not available. First dating scan (date and location): 07/31/2023. Estimated date of delivery (DANIELLE) from first dating scan: 03/02/2024. The calculations are made using the working DANIELLE of 03/02/2024. TECHNIQUE: Real-time scanning was performed of the fetus, with image documentation and biometric measurements. Biophysical profile was also obtained. COMPARISON: [facility], , OB LIMITED, 01/10/2024, 8:04. FINDINGS: General: A single living intrauterine gestation is present. Presentation: Vertex. Placenta: Placental position is posterior, without previa. Amniotic fluid index: 14.7 cm.. Single deepest vertical pocket is 7.0 cm. heart rate: 140 beats per minute. Maternal cervical canal: Not visualized. biometrics: Biparietal diameter: 37 weeks 4 days Head circumference: 38 weeks 4 days Abdominal circumference: 39 weeks 1 day Femur length: 40 weeks 2 days Clinically estimated gestational age: 38 weeks 4 days Composite gestational age from present scan: 38 weeks 6 days Estimated weight and percentile: 3681 g; 78%. Other: No nuchal cord on the current exam. IMPRESSION: 1. A single living intrauterine gestation redemonstrated. There is appropriate growth. 2. weight is 78% for gestation age. 3. No nuchal cord on today's exam. We strive to produce accurate, complete, and clear reports of imaging services. To assist us in improving patient care, this report was composed using standard report templates and voice recognition software. Therefore, it may contain abnormal punctuation, insertions and/or omissions. Occasional wrong-word or sound-alike substitutions may occur. Though we review the report and make efforts to correct it, we do recommend that the report be read carefully in proper context to recognize any text inaccuracies. Dictated by: Cricket Calix M.D. on 02/21/2024 at 12:04 Approved by: Cricket Calix M.D. on 02/21/2024 at 12:13
== END ==
LOC: US 08:14
PROVIDERS: Family Provider Family Medicine; PCP Family Medicine; Referring Provider Family Medicine; Visit Provider Family Medicine
DX: O36.63X0 Maternal care for excessive fetal growth, third trimester, not applicable or unspecified (principal); Z3A.38 38 weeks gestation of pregnancy
CPT/HCPCS: 76815

== ENCOUNTER 2024-03-03 17:40 | Inpatient (IN) | payer BC, SELFPAY ==
[2024-03-03 18:36] LABS: Add Manual Diff / Slide Review NO; Basophils Absolute Auto 100 /uL (0-100); Basophils Percent Auto 0.6 % (0-2); Eosinophils Absolute Auto 0 /uL (0-450); Eosinophils Percent Auto 0.3 % (2-4); Hematocrit 39.4 % (36-46); Hemoglobin 13.1 g/dL (12.0-16.0); Lymphocytes Absolute Auto 2400 /uL (1100-4500); Lymphocytes Percent Auto 15.2 % (25-40); Mean Corpuscular HGB Conc 33.2 % (30-36); Mean Corpuscular Hemoglobin 26.2 PG (26-34); Monocytes Absolute Auto 900 /uL (0-900); Monocytes Percent Auto 5.6 % (3-14); Neutrophils Absolute Auto 12200 /uL (1500-7000); Neutrophils Percent Auto 78.3 % (50-75); Platelet Count 246 X10^3/uL (150-400); Red Blood Cell Count 4.98 X10^6/uL (4.0-5.2); Red Cell Distribution Width 15.3 % (11.6-14.8); White Blood Cell Count 15.6 X10^3/uL (4.5-11.0)
--- NOTE | 2024-03-03 18:59 | P.HPOB_ITS ---
OB HPI Date/Time Date of admission: 03/03/24 Date Patient Seen: 03/03/24 History of Present Condition Chief complaint: LABOR DANIELLE Calculator 2 Estimated Delivery Date Method Current WG Current Estimate 03/02/24 Manual 40w 2d Final DANIELLE - BRYSON Other Estimates 02/26/24 LMP (Certain) 41w 0d 03/02/24 Ultrasound #1 40w 2d Estimated Gestational Age (weeks): 40w1d : 5 Para: 2 Narrative: 34yo at 40w1d presented with regular contractions. Pt reports contractions started around 2:30am, increasing in intensity throughout the day. No vaginal bleeding. She had LOF when in the hospital lobby checking in. Her was complicated by LGA, with repeat u/s showing appropriate growth. care: good care, initiated at week # (9) and pounds weight gain (54) Dating criteria OB: based on 1st trimester US only Ultrasounds: normal 1st trimester US and normal mid trimester US Obstetrical complications: none Medical complications OB: none Preadmission Labs Last OB Lab Results: 2 Blood Type A Positive 03/03/24 17:56 Antibody Screen Negative 03/03/24 17:56 Hematocrit 39.4 % (36-46) 03/03/24 17:56 Hemoglobin 13.1 g/dL (12.0-16.0) 03/03/24 17:56 Hepatitis B Surface Antigen Negative s/c (NEGATIVE) 08/09/23 15 :40 Hepatitis C Antibody Negative s/c (NEGATIVE) 08/09/23 15:40 Rubella Antibody 17.4 IU/mL (>15) 08/09/23 15:40 Varicella-Zoster IgG Antibody 244 index (Immune >165) 08/09/23 15:40 Glucose 1 Hour 123 mg/dL (76-139) 12/09/23 10:12 Group B Streptococcus (PCR) Neg for grp b strep 01/31/24 10:52 -: Urine: negative Genetic Screens: Cell-free DNA: Normal External Labs -: Urine: negative Prior (ies) Past Pregnancies Del. Date GA/Weeks Labor Lgth Wt Sex Route Outcome Anesthesia Place Delv Breastfeed Preg Comp Name 09/19/16 7 spontaneous [place] a spontaneous 08/29/17 41 18 9 lb 2 oz Male vaginal forceps live - full term epidural [place] 13 months post- dates induction [place] 01/25/20 6 spontaneous [place] spontaneous 11/25/20 39.5 21 8 lb 12.496 oz Female vaginal live - ful l term [facility] 12 months other [place] Delivery Date: 09/19/16 Last Updated by: Linda Galan R.N. *Some mild Depression after. Delivery Date: 08/29/17 Last Updated by: Lnida Galan R.N. *Episiotomy : not happy about it. *No PP issues. Delivery Date: 01/25/20 Last Updated by: Linda Galan R.N. *Coped better this time. Delivery Date: 11/25/20 Last Updated by: Belinda Stubbs RN viral infection rash in early Evaluation Evaluation Baseline heart rate: 130 Variability: Moderate (11-25) monitor accelerations: Present Monitor Decelerations: Absent Status: Category l Dilation (cm): 8 Effacement (%): 100 station: +1 PFSH Medical History Allergies Migraines (~2007) Heavy menstrual period Spontaneous vaginal delivery Chicken pox (~1995) Kidney stones (~2016) Surgical History Anesthesia [place] teeth removed (~2007) Family History Mother Gestational diabetes Endometriosis Skin cancer Father Hyperlipidemia Grandfather History of heart disease Colon cancer Hyperlipidemia Hypertension Grandmother Liver cancer Osteoporosis Grandfather Diabetes mellitus History of heart disease Hyperlipidemia Grandmother Colon cancer Breast cancer Macular degeneration Family/Other Diabetes mellitus Family/Other Lymphoma Family/Other Breast cancer Sister Benign tumor of pituitary gland Uncle Prostate cancer Social History marital status: number of children: 2 household members: spouse and children lives independently: Yes caregiver/support person: Yes housing: house pets and animals: Yes (dog) education level: college (BA K-12 Health and PE Cert) occupational status: previously employed current occupational exposures/hazards: No 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 [employer] Hand nicole/zoroastrian: Hoahaoism special nicole needs: No travel history: over 6 months ago seatbelt use: always water heater temp set < 120 deg: Yes working smoke detector in home: Yes fire extinguisher in home: Yes carbon monox detector in home: Yes firearms in home: Yes firearms unloaded and locked: Yes do you feel safe at home: Yes Smoking Status: Never smoker second hand exposure: No alcohol intake: former (rarely when not ) substance use type: does not use during the past year weight has: increased > 10 lbs (muscle weight, heavy weight training) well-balanced diet: daily or most days daily servings fruits/ve or more times/day caffeine: Yes (aware of 200mg limit) Type(s) of exercise: bicycling (stationary bike) and weight lifting frequency: 5-6 times per week Meds Home Medications and Allergies Home Medications Medication Instructions Recorded Confirmed Type prenat.vits,drea,yuh-jbzb-eygsf 1 tab PO DAILY 04/20/20 02/28/24 History Allergies Allergy/AdvReac Type Severity Reaction Status Date / Time amoxicillin Allergy Severe Hives Verified 02/28/24 10:38 OB Exam Resp Effort & Inspection: normal respiratory effort Auscultation: clear to auscultation bilaterally Cardio Rate: regular rate Rhythm: regular rhythm Heart Sounds: S1 normal, S2 normal and no murmurs GI Inspection: non-distended Palpation: Yes soft and No tender Presentation: vertex Objective Labs 03/03/24 17:56 Labs: Laboratory Results - last 24 hr 03/03/24 17:56 WBC 15.6 H RBC 4.98 Hgb 13.1 Hct 39.4 MCV 79.0 L MCH 26.2 MCHC 33.2 RDW 15.3 H Plt Count 246 Neut % (Auto) 78.3 H Lymph % (Auto) 15.2 L Cal[place]oun % (Auto) 5.6 Eos % (Auto) 0.3 L Baso % (Auto) 0.6 Neut # (Auto) 11502 H Lymph # (Auto) 2400 [place] # (Auto) 900 Eos # (Auto) 0 Baso # (Auto) 100 Assessment and Plan Assessment and Plan Assessment and Plan narrative: 34yo at 40w1d here in active labor. GBS negative, Rh positive. - Expectant management, anticipate - FHT reassuring, intermittent monitoring - Desires natural methods for pain control - GBS negative, no prophylaxis indicated
--- NOTE | 2024-03-03 18:59 | PM.OBPRVD ---
Labor & Delivery Delivery date: 03/03/24 Cervical ripening method: none Induction method: none Route of delivery: L&D Laceration Description: Perineal - 2nd Degree Estimated blood loss (mL): 350 Anesthesia Type: None Complications: None Narrative: PROCEDURE: at 40w1d presented in active labor and was admitted to Labor and Delivery. The patient progressed through the 1st stage over 15.5 hours. SROM occured at 17:50 with clear fluid. Pain was controlled with natural methods. The patient progressed through the 2nd stage over 19 minutes and delivered a viable male infant with APGARs 8/9 at 18:19 via without complications. Nuchal cord x 1 was reduced at the perineum. The cord was cut and clamped after it stopped pulsating. The placenta delivered with gentle cord traction, and appeared complete. The perineum and vagina were inspected with 2nd degree perineal laceration repaired with 2-O Vicryl. Needle and sponge counts were correct.? The vagina was inspected and no items were left in situ. Bethany was doing well with Clive, her and Samy, her , at bedside. PREPROCEDURE DIAGNOSIS: Intrauterine at 40w1d GBS negative RH positive POSTPROCEDURE DIAGNOSIS: Intrauterine at 40w1d, delivered Same as preprocedure LGA [place] Baby 1: Infant gender: Male Presentation: vertex Position: Right Occiput Anterior Placenta delivery description: Spontaneous Cord Vessel Description: 3 Vessels and Nuchal Cord score (1 min): 8 score (5 min): 9 weight: 10 lb 3.072 oz Plan for aftercare: Routine care
[2024-03-03] MEDS: IBUPROFEN 600 MG TABLET PO (19:44)
[2024-03-04] MEDS: IBUPROFEN 600 MG TABLET PO ×2 (04:25→10:14)
[2024-03-04] MEDS: PRENATAL VIT,CALC/IRON/FOLIC 1 TABLET 1 TAB PO (09:43)
[2024-03-04] MEDS: DOCUSATE 100 MG CAPSULE PO (09:43)
[2024-03-04] MEDS: ACETAMINOPHEN 325 MG TABLET 650 MG PO (10:14)
[2024-03-04 12:26] VITALS: BP 134/84; PULSE 96; RESP 18; TEMP 36.9
[2024-03-04 13:32] VITALS: BP 134/84; PULSE 96; RESP 18; TEMP 36.9
[2024-03-04 13:36] VITALS: BP 134/84; PULSE 96; RESP 18; TEMP 36.9
== END 2024-03-04 14:58 | disposition home or self-care (01) | DRG 807 ==
PROVIDERS: Admitting Provider Family Medicine; Family Provider Family Medicine; PCP Family Medicine; Referring Provider Family Medicine; Visit Provider Family Medicine
DX: O36.63X0 Maternal care for excessive fetal growth, third trimester, not applicable or unspecified (principal); Z37.0 Single live birth; O70.1 Second degree perineal laceration during delivery; Z3A.40 40 weeks gestation of pregnancy
CPT/HCPCS: 36415; 59050; 85025; 86850; 86900; 86901; G0379

== ENCOUNTER → 2025-03-15 18:43 | Outpatient (CLI) | payer BC, SELFPAY | PROVIDERS: Family Provider Family Medicine; PCP Family Medicine; Visit Provider Chiropractor | DX: M79.676 Pain in unspecified toe(s) (principal) | CPT/HCPCS: 87070; 87075; 87077; 87147; 87186; 87205 ==